=== PATIENT | female | born 1940 | race Caucasian/White ===

== ENCOUNTER 2017-02-23 09:55 | Emergency (ER) | payer MEDICARE, MEDICAID, SELFPAY | END 2017-02-23 11:23 | disposition home or self-care (01) | PROVIDERS: Emergency Provider Nurse Practitioner; Family Provider Family Medicine; Visit Provider Nurse Practitioner | DX: J06.9 Acute upper respiratory infection, unspecified (principal); Z79.899 Other long term (current) drug therapy; E11.9 Type 2 diabetes mellitus without complications; Z79.84 Long term (current) use of oral hypoglycemic drugs; K21.9 Gastro-esophageal reflux disease without esophagitis; E78.5 Hyperlipidemia, unspecified | CPT/HCPCS: G0463; 87804; 99201 ==

== ENCOUNTER → 2017-03-02 13:37 | Outpatient (POV) | payer MEDICARE, MEDICAID, SELFPAY ==
[2017-03-02 14:16] VITALS: BP 116/71; PULSE 86; RESP 18; O2SAT 96
--- NOTE | 2017-03-02 14:24 | P.CONS_ITS ---
[facility] Pain Management SOAP Note Subjective:: This patient is a pleasant 76-year-old white female who we are treating for low back pain with lumbar radiculopathy symptoms. She had a lumbar epidural steroid injection which gave her some relief however it did not give her as much relief as her second injection. She still has some low back pain. She is also on [place] 5 mg twice a day which is helping tremendously. Her urine drug screen and Y[place] are appropriate. Kaspar #[id number]. We will give her 1 prescription of [place] 5 mg twice a day. I will give her a one-month prescription. We will follow-up with her in 1 month to reevaluate her symptoms and possible plan on a repeat injection at that time. Objective:: Alert and oriented ?3 no acute distress. Patient has a normal gait. Motor strength of the lower extremities is 5/5. There is no gross sensory deficit. Assessment:: Degenerative disc disease of lumbar spine with lumbar radiculopathy symptoms. Plan:: We will give her 1 prescription of [place] 5 mg twice a day. I will give her a one-month prescription. We will follow-up with her in 1 month to reevaluate her symptoms and possible plan on a repeat injection at that time.
[2017-03-02 16:01] LABS: Amphetamine/Metha Screen,Urine Negative ng/mL (<1000); Barbiturates Screen,Urine Negative ng/mL (<200); Benzodiazepines Screen,Urine Negative ng/mL (200); Cannabinoid Screen,Urine Negative ng/mL (<50); Cocaine Screen,Urine Negative ng/g (<300); Methadone Screen,Urine Negative ng/mL (<300); Opiate Screen,Urine Positive ng/mL (<300); Phencyclidine Screen,Urine Negative ng/mL (<25)
[2017-03-10 09:16] LABS: Codeine Negative (Cutoff=100); Hydrocodone Positive (.); Hydromorphone Negative (Cutoff=100); Morphine Negative (Cutoff=100)
[2017-03-12 17:09] LABS: Opiates Positive (.)
== END ==
PROVIDERS: PCP Family Medicine; Visit Provider Anesthesiology
DX: M51.16 Intervertebral disc disorders with radiculopathy, lumbar region (principal); Z79.899 Other long term (current) drug therapy
CPT/HCPCS: 80305; 80361; 99212; G0480

== ENCOUNTER → 2017-03-23 12:33 | Outpatient (CLI) | payer MEDICARE, MEDICAID, SELFPAY ==
--- NOTE | 2017-03-23 12:36 | XR_ITS ---
XR chest 2V HISTORY: Chest pain ITS.REASON: angina class III ORDERING PHYSICIAN: Joon Arenas MD PATIENT AGE: 76 years COMPARISON: 05/16/2012 FINDINGS: There has been a prior median sternotomy with CABG. There is cardiomegaly without failure. There is a vague opacity in the right perihilar region measuring approximately 3 cm. May be due to an area of infiltrate. Follow-up is recommended subtle mass lesion cannot be excluded. In addition, there is a 7 mm nodular opacity in the right lung base nonspecific but not previously identified. There is chronic interstitial changes within the lungs. There has been prior left shoulder replacement. Multilevel degenerative changes are present in the thoracic spine. IMPRESSION: 1. Cardiomegaly, prior CABG. 2. Patchy infiltrate/pneumonia right midlung with a nonspecific nodular opacity in the right lung base. Follow-up recommended to confirm stability and/or resolution. 3. Chronic interstitial changes.
[2017-03-23 12:56] LABS: Basophils % 0.4 % (0.1-2.0); Eosinophils # 0.2 K/mm3 (0.0-0.4); Eosinophils % 3.2 % (0.1-12.0); Hematocrit 34.5 % (37.0-47.0); Lymphocytes # 2.6 K/mm3 (0.7-4.5); Mean Corpuscular Hemoglobin 28.6 pg (27.0-31.2); Mean Corpuscular Volume 89.3 fl (81-99); Mean Platelet Volume 8.3 fl (7.4-10.4); Monocytes # 0.5 K/mm3 (0.1-1.0); Monocytes % 6.8 % (1.7-9.3); Neutrophils # 4.1 K/mm3 (1.8-7.8); Neutrophils % 54.6 % (37.0-80.0); Platelet Count 382 K/mm3 (142-424); Red Blood Count 3.86 M/mm3 (4.20-5.40); Red Cell Distribution Width 14.5 % (11.5-17.5); White Blood Count 7.5 K/mm3 (4.8-10.8)
[2017-03-23 13:57] LABS: Anion Gap 8.8 mEq/L (5-15); Blood Urea Nitrogen 23 mg/dL (7-18); Carbon Dioxide 31 mmol/L (21.0-32.0); Chloride 105 mmol/L (98-107); Creatinine,Serum 0.66 mg/dL (0.55-1.02); Estimated Glomerular Filt Rate 87 ml/min (>60); Free T4 (Free Thyroxine) 0.98 ng/dl (0.76-1.46); GFR (African American) 105 ML/MIN (>60); Glucose 66 mg/dL (74-106); Potassium 4.8 mmoL/L (3.5-5.1); Sodium 140 mmol/L (136-145); Thyroid Stimulating Hormone 2.77 uIU/ml (0.358-3.740)
== END ==
PROVIDERS: Family Provider Family Medicine; PCP Family Medicine; Visit Provider Internal Medicine
DX: E78.5 Hyperlipidemia, unspecified; I10 Essential (primary) hypertension; I25.10 Atherosclerotic heart disease of native coronary artery without angina pectoris; I20.9 Angina pectoris, unspecified; R06.00 Dyspnea, unspecified
CPT/HCPCS: 36415; 71046; 80048; 84439; 84443; 85025

== ENCOUNTER → 2017-03-26 09:00 | Outpatient (CLI) | payer MEDICARE, MEDICAID, SELFPAY ==
--- NOTE | 2017-03-26 09:04 | CA_ITS ---
PROCEDURE: 2-D M-mode and color Doppler study INDICATIONS FOR THE TEST: Chest pain COPD+ Heart Murmur Tobacco Smoking Palpitations Fatigue+ Syncope Edema Hypertension+Diabetes Mellitus+ Rheumatic Fever SOB CELESTE+Obesity Hyperlipidemia+ Family History HD Additional History CABG/CAD, CHEST PRESSURE PATIENT INFORMATION HEIGHT: 62 WEIGHT: 188 GENDER: Female B/P: 145/73 2-D/M-MODE INTERPRETATION: 2-D MEASUREMENTS OBSERVED VALUES IN CMS Right Ventricular Dimension (RVDd) 2.2 Interventricular Septum (Thickness)(IVsd) 1.3 Left Ventricular Internal Dimensions(LVIDd) 4.2 Left Ventricular Posterior Wall (Thickness)(LVPWd) 1.3 Aortic Root 2.9 Aortic Cusp Separation 2.0 Left Atrial Dimensions (LAD) 4.4 2D 1. Technically difficult study because of the patient's factor and poor acoustic windows. 2. Left atrium is mildly enlarged, left ventricle is normal size, there is mild concentric left ventricular hypertrophy, visually estimated ejection fraction 55% with no obvious regional wall motion abnormality. 3. The right atrium and right ventricle are mildly enlarged with normal contractility. 4. The aortic valve is minimally thickened and fibrosed. Leaflet continue to display mobility. 5. The mitral and tricuspid valve leaflets are minimally thickened. 6. No significant pericardial effusion noted. 7. The pulmonic valve is poorly visualized. DOPPLER INTERROGATION: Doppler interrogation of the aortic, mitral and tricuspid valvular presence of mild mitral and tricuspid regurgitation, tricuspid and jet velocity is insufficient for calculation of the right ventricular systolic pressure, aortic outflow velocities mildly increased does not represent significant aortic stenosis, there is no aortic insufficiency. Grade 1 diastolic dysfunction seen without tissue Doppler evidence of raised left atrial pressure. CONCLUSION: 1. Mildly enlarged left atrium, normal left ventricular size, mild concentric left ventricular hypertrophy, visually estimated ejection fraction 55% with no obvious regional wall motion abnormality, grade 1 diastolic dysfunction seen without tissue Doppler evidence of raised left atrial pressure. 2. Thickened and calcified aortic valve, Doppler is not suggestive of significant aortic stenosis, there is no aortic insufficiency. 3. Mild mitral and tricuspid regurgitation 4. No significant pericardial effusion noted.
== END ==
PROVIDERS: Family Provider Family Medicine; PCP Family Medicine; Visit Provider Internal Medicine
DX: I25.10 Atherosclerotic heart disease of native coronary artery without angina pectoris (principal); I20.9 Angina pectoris, unspecified; E11.9 Type 2 diabetes mellitus without complications; E78.5 Hyperlipidemia, unspecified; I10 Essential (primary) hypertension; Z95.1 Presence of aortocoronary bypass graft
CPT/HCPCS: 93306

== ENCOUNTER → 2017-04-12 13:42 | Outpatient (POV) | payer MEDICARE, MEDICAID, SELFPAY ==
[2017-04-12 13:51] VITALS: BP 128/71; PULSE 68; RESP 18; O2SAT 95; BMI 32.5
--- NOTE | 2017-04-12 13:57 | HMH.PAINSOAP ---
[facility] Pain Management SOAP Note Subjective:: Patient is a pleasant 76-year-old white female who are treating for low back pain secondary to degenerative disc disease of the lumbar spine and lumbar radiculopathy. Patient has had lumbar injections in the past with significant relief. However after her last injection she did not get as much relief as her first injection. Patient rates her pain at 8 out of 10 when she is up and around. She states that it is more like a 5 out of 10 when she sitting down. She has bilateral leg radiculopathy. She states that it is a constant aching pain. It is relieved by sitting down. She is wishing to try another lumbar epidural steroid injection. Patient has started [place] 5 mg 1 p.o. twice daily patient states that it helps decrease the pain by 75%. She feels that this in conjunction with another lumbar epidural steroid injection might give her some long-term relief. Patient has tried and failed anti-inflammatories and physical therapy. Patient's Kaspar #[id number] reviewed and appropriate. Her urine drug screen has been appropriate in the past. Patient wishes to schedule another lumbar injection today. Objective:: Physical Exam General: Alert and oriented x3, no acute distress, pleasant and cooperative, [on room air] Lungs: Resps E/U, Symmetrical chest expansion Musculoskeletal: Flexion and extension of lumbar spine somewhat guarded secondary to pain, deep tendon reflexes normal, strength in upper and lower extremities [5/5], slightly antalgic gait noted Neurological: speech clear, power generating plant operator equal, no gross sensory deficits Assessment:: degenerative disc disease of lumbar spine with lumbar radiculopathy symptoms Plan:: We will refill the patient's [place] 5 mg 1 p.o. twice daily today and give her one prescription. Dr. Enriquez is reviewed this and feels that it is appropriate. Carrie has been reviewed and appropriate Kaspar #[id number]. We will also schedule her lumbar epidural steroid injection at L4-L5 today. Given the efficacy of this injection previously and the increased pain relief with the medication I feel like this injection will be beneficial for the patient. Patient has been prescribed a controlled substance after being counseled on the medication, medication safety, and possible side effects. CARRIE report has been obtained and reviewed prior to prescription and found to be appropriate. Opioid contract was reviewed and signed by the patient, and that they have agreed to all of the terms set forth by our compliance program. This note was dictated using voice recognition software and may include errors and omissions.
--- NOTE | 2017-04-12 14:17 | XR_ITS ---
XR chest 2V HISTORY: Chest pain, follow-up pneumonia ITS.REASON: chest pain ORDERING PHYSICIAN: Suad Ramirez PATIENT AGE: 76 years COMPARISON: 03/23/2017 FINDINGS: Prior median CABG. Mild cardiomegaly. Pulmonary vessels are slightly prominent suggesting mild CHF. Previously noted infiltrate in the right perihilar region has improved. There is minimal prominence of the interstitium which may be related to mild interstitial edema. There are degenerative changes in the thoracic spine. Prior left shoulder replacement. IMPRESSION: Mild CHF. Improved right perihilar infiltrate
--- NOTE | 2017-04-12 14:35 | P.CONS_ITS ---
[facility] Pain Management SOAP Note Subjective:: Patient is a pleasant 76-year-old white female who are treating for low back pain secondary to degenerative disc disease of the lumbar spine and lumbar radiculopathy. Patient has had lumbar injections in the past with significant relief. However after her last injection she did not get as much relief as her first injection. Patient rates her pain at 8 out of 10 when she is up and around. She states that it is more like a 5 out of 10 when she sitting down. She has bilateral leg radiculopathy. She states that it is a constant aching pain. It is relieved by sitting down. She is wishing to try another lumbar epidural steroid injection. Patient has started [place] 5 mg 1 p.o. twice daily patient states that it helps decrease the pain by 75%. She feels that this in conjunction with another lumbar epidural steroid injection might give her some long-term relief. Patient has tried and failed anti-inflammatories and physical therapy. Patient's Kaspar #[id number] reviewed and appropriate. Her urine drug screen has been appropriate in the past. Patient wishes to schedule another lumbar injection today. Objective:: Physical Exam General: Alert and oriented x3, no acute distress, pleasant and cooperative, [ on room air] Lungs: Resps E/U, Symmetrical chest expansion Musculoskeletal: Flexion and extension of lumbar spine somewhat guarded secondary to pain, deep tendon reflexes normal, strength in upper and lower extremities [5/5], slightly antalgic gait noted Neurological: speech clear, manager program equal, no gross sensory deficits Assessment:: degenerative disc disease of lumbar spine with lumbar radiculopathy symptoms Plan:: We will refill the patient's [place] 5 mg 1 p.o. twice daily today and give her one prescription. Dr. Enriquez is reviewed this and feels that it is appropriate. Carrie has been reviewed and appropriate Kaspar #[id number]. We will also schedule her lumbar epidural steroid injection at L4-L5 today. Given the efficacy of this injection previously and the increased pain relief with the medication I feel like this injection will be beneficial for the patient. Patient has been prescribed a controlled substance after being counseled on the medication, medication safety, and possible side effects. CARRIE report has been obtained and reviewed prior to prescription and found to be appropriate. Opioid contract was reviewed and signed by the patient, and that they have agreed to all of the terms set forth by our compliance program. This note was dictated using voice recognition software and may include errors and omissions.
== END ==
PROVIDERS: Family Provider Family Medicine; PCP Family Medicine; Referring Provider Internal Medicine; Visit Provider Clinical Nurse Specialist Family Health
DX: Z95.1 Presence of aortocoronary bypass graft (principal); I25.10 Atherosclerotic heart disease of native coronary artery without angina pectoris; I10 Essential (primary) hypertension; E78.4 Other hyperlipidemia; E11.9 Type 2 diabetes mellitus without complications
CPT/HCPCS: 99212; 71046

== ENCOUNTER 2017-05-07 12:25 | Day surgery (SDC) | payer MEDICARE, MEDICAID, SELFPAY ==
[2017-05-07 13:02] VITALS: BP 110/56; PULSE 73; TEMP 36.1; O2SAT 95; BMI 33.6
[2017-05-07 13:17] VITALS: BP 138/70; PULSE 74; RESP 18
[2017-05-07 13:24] VITALS: BP 139/90; PULSE 76; RESP 18
--- NOTE | 2017-05-07 13:27 | P.PCN_ITS ---
- Procedure Date: 05/07/17 Time: 13:25 Anesthesiologist:: Eugene Marte MD Complications:: None Pre-procedure Diagnosis:: Degenerative disc disease of lumbar spine with lumbar radiculopathy symptoms Post-procedure Diagnosis:: Same Indications for Procedure:: This patient is a pleasant 76-year-old white female who we are treating for low back pain with lumbar radiculopathy symptoms. Most of her pain is in her low back radiating down her right leg. She did get benefit from her previous lumbar epidural steroid injection. She is also increased her gabapentin. This has helped with some of her radicular symptoms. We will do a lumbar epidural steroid injection today to see if this further helps with her pain symptoms. Procedure Details:: Lumbar epidural steroid injection under fluoroscopy Informed consent was obtained and the risk and benefits of the procedure was explained to the patient. The patient was taken to the procedure room. The patient was placed prone on the procedure table. The patient was prepped and draped in sterile fashion. C-arm fluoroscopy was used to view the lumbar spine. Skin and subcutaneous tissues were anesthetized using lidocaine. I placed an 18-gauge epidural needle and advanced into the L4-L5 interspace using fluoroscopic guidance and [id number] to air. After confirmation of needle placement in the epidural space with dye I injected 2 mL of lidocaine 1.5 % with Depo-Medrol 80 mg. Patient tolerated the procedure well with no complications. Plan and Disposition:: We will follow-up with her in 2 weeks. We will reevaluate her symptoms at that time. She is to continue with her gabapentin.
[2017-05-07 14:02] VITALS: BP 106/44; PULSE 77; RESP 16; TEMP 36.1; O2SAT 96
== END 2017-05-07 13:05 | disposition home or self-care (01) ==
LOC: SC.PAINP 12:26
PROVIDERS: Family Provider Family Medicine; PCP Family Medicine; Visit Provider Anesthesiology
DX: M51.16 Intervertebral disc disorders with radiculopathy, lumbar region (principal)
CPT/HCPCS: 62323; J1040; Q9966

== ENCOUNTER → 2017-05-24 13:31 | Outpatient (POV) | payer MEDICARE, MEDICAID, SELFPAY ==
[2017-05-24 13:44] VITALS: BP 158/59; PULSE 79; RESP 18; TEMP 36.7; O2SAT 94; BMI 32.9
--- NOTE | 2017-05-24 13:59 | HMH.PAINSOAP ---
[facility] Pain Management SOAP Note Subjective:: She is a pleasant 77-year-old white female who presents today for follow-up after lumbar epidural steroid injection. Patient is doing very well stating that she has about 80% relief of her symptoms. Patient has done well with lumbar epidural steroid injections in the past. Patient has just recently lost her granddaughter. Patient seems to be handling this well. Patient is interested in injective therapy moving forward. Patient also currently being medically managed with [place] 5 mg 1 p.o. twice daily. Patient is doing well with this. Patient denies any side effects. Patient states that helps her pain 60-70%. Patient's CARRIE #[id number] reviewed and appropriate. Patient's UDS has been appropriate in the past. Patient is due refills today. ROS General: no recent weight change, no fever, no sleep disturbances Respiratory: no cough, no shortness of air, no recurring pulmonary infections Cardiovascular/Peripheral Vascular: No chest pain, No palpitations, no edema, no shortness of breath. Gastrointestinal: no incontinence, normal bowel movements reported Genitourinary: no incontinence Musculoskeletal: Back pain, bilateral leg pain Psychiatric: normal mood/ affect, [denies depression], [denies anxiety] Neurological: [denies weakness in extremities], [denies balance issues] Objective:: Physical Exam General: Alert and oriented x3, no acute distress, pleasant and cooperative, [on room air] Lungs: Resps E/U, Symmetrical chest expansion, Eyes: PERRL Musculoskeletal: Flexion and extension of lumbar spine somewhat guarded secondary to pain, deep tendon reflexes normal, strength in upper and lower extremities [5/5], slightly antalgic gait noted Neurological: speech clear, pharmacy delivery driver equal, no gross sensory deficits Assessment:: Degenerative disc disease of the lumbar spine, lumbar radiculopathy Plan:: We will plan another lumbar epidural steroid injection in several for her. We will also refill her [place] 5 mg 1 p.o. twice daily and give HER-2 prescriptions. Patient's Carrie and UDS reviewed and appropriate. Dr. Marte has reviewed her chart and agrees with this plan of care. We will follow-up with the patient in 3 months and regards to her prescriptions. 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 Patient has been prescribed a controlled substance after being counseled on the medication, medication safety, and possible side effects. CARRIE report has been obtained and reviewed prior to prescription and found to be appropriate. Opioid contract was reviewed and signed by the patient, and that they have agreed to all of the terms set forth by our compliance program. This note was dictated using voice recognition software and may contain errors or omissions
--- NOTE | 2017-05-24 14:02 | P.CONS_ITS ---
[facility] Pain Management SOAP Note Subjective:: She is a pleasant 77-year-old white female who presents today for follow-up after lumbar epidural steroid injection. Patient is doing very well stating that she has about 80% relief of her symptoms. Patient has done well with lumbar epidural steroid injections in the past. Patient has just recently lost her granddaughter. Patient seems to be handling this well. Patient is interested in injective therapy moving forward. Patient also currently being medically managed with [place] 5 mg 1 p.o. twice daily. Patient is doing well with this. Patient denies any side effects. Patient states that helps her pain 60-70%. Patient's CARRIE #[id number] reviewed and appropriate. Patient's UDS has been appropriate in the past. Patient is due refills today. ROS General: no recent weight change, no fever, no sleep disturbances Respiratory: no cough, no shortness of air, no recurring pulmonary infections Cardiovascular/Peripheral Vascular: No chest pain, No palpitations, no edema, no shortness of breath. Gastrointestinal: no incontinence, normal bowel movements reported Genitourinary: no incontinence Musculoskeletal: Back pain, bilateral leg pain Psychiatric: normal mood/ affect, [denies depression], [denies anxiety] Neurological: [denies weakness in extremities], [denies balance issues] Objective:: Physical Exam General: Alert and oriented x3, no acute distress, pleasant and cooperative, [ on room air] Lungs: Resps E/U, Symmetrical chest expansion, Eyes: PERRL Musculoskeletal: Flexion and extension of lumbar spine somewhat guarded secondary to pain, deep tendon reflexes normal, strength in upper and lower extremities [5/5], slightly antalgic gait noted Neurological: speech clear, bilingual student tutor equal, no gross sensory deficits Assessment:: Degenerative disc disease of the lumbar spine, lumbar radiculopathy Plan:: We will plan another lumbar epidural steroid injection in several for her. We will also refill her [place] 5 mg 1 p.o. twice daily and give HER-2 prescriptions. Patient's Carrie and UDS reviewed and appropriate. Dr. Marte has reviewed her chart and agrees with this plan of care. We will follow-up with the patient in 3 months and regards to her prescriptions. 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 Patient has been prescribed a controlled substance after being counseled on the medication, medication safety, and possible side effects. CARRIE report has been obtained and reviewed prior to prescription and found to be appropriate. Opioid contract was reviewed and signed by the patient, and that they have agreed to all of the terms set forth by our compliance program. This note was dictated using voice recognition software and may contain errors or omissions
== END ==
PROVIDERS: Family Provider Family Medicine; PCP Family Medicine; Visit Provider Clinical Nurse Specialist Family Health
DX: M54.16 Radiculopathy, lumbar region (principal)
CPT/HCPCS: 99212

== ENCOUNTER 2017-05-26 15:10 | Day surgery (SDC) | payer MEDICARE, MEDICAID, SELFPAY ==
[2017-05-26 16:02] VITALS: BP 100/59; PULSE 72; RESP 18; TEMP 36.6; O2SAT 94; BMI 32.9
--- NOTE | 2017-05-26 16:21 | P.PCN_ITS ---
- Procedure Date: 05/26/17 Time: 16:20 Anesthesiologist:: Eugene Marte MD Complications:: None Pre-procedure Diagnosis:: Degenerative disc disease of lumbar spine with lumbar radiculopathy symptoms Post-procedure Diagnosis:: Same Indications for Procedure:: This patient is a pleasant 77-year-old white female who we are treating for low back pain with lumbar radiculopathy symptoms. She did well with previous epidural injections. She was 80% better. Her pain is starting to return. We will do repeat lumbar epidural steroid injection under fluoroscopy today. Procedure Details:: Lumbar epidural steroid injection under fluoroscopy Informed consent was obtained and the risk and benefits of the procedure was explained to the patient. The patient was taken to the procedure room. The patient was placed prone on the procedure table. The patient was prepped and draped in sterile fashion. C-arm fluoroscopy was used to view the lumbar spine. Skin and subcutaneous tissues were anesthetized using lidocaine. I placed an 18-gauge epidural needle and advanced into the L4-L5 interspace using fluoroscopic guidance and [id number] to air. After confirmation of needle placement in the epidural space with dye I injected 2 mL of lidocaine 1.5 % with Depo-Medrol 80 mg. Patient tolerated the procedure well with no complications. Plan and Disposition:: We will follow-up with her in 2 weeks for reevaluate her symptoms at that time. She is to continue with her [place] 5 mg twice daily.
[2017-05-26 16:32] VITALS: BP 132/75; PULSE 66; RESP 18
[2017-05-26 16:35] VITALS: BP 135/77; PULSE 68; RESP 18
[2017-05-26 16:40] VITALS: BP 126/63; PULSE 74; RESP 18; O2SAT 93
== END 2017-05-26 16:37 | disposition home or self-care (01) ==
LOC: SC.PAINP 15:12
PROVIDERS: Family Provider Family Medicine; PCP Family Medicine; Visit Provider Anesthesiology
DX: M51.16 Intervertebral disc disorders with radiculopathy, lumbar region (principal)
CPT/HCPCS: 62323; J1040; Q9966

== ENCOUNTER → 2017-06-28 11:01 | Outpatient (POV) | payer MEDICARE, MEDICAID, SELFPAY ==
--- NOTE | 2017-06-28 11:39 | HMH.PAINSOAP ---
[facility] Pain Management SOAP Note Subjective:: This patient pleasant 77-year-old white female who we are treating for low back pain with lumbar radiculopathy symptoms. She is done very well with previous lumbar epidural steroid injections. She had 80-90% relief. Her pain is now starting to come back. She has been more active and she believes she is twisted her back. Pain is in the same distribution as previous. Pain score is an 8 out of 10. Most of her pain is in the low back today. Objective:: Alert and oriented ?3 no acute distress. Patient does have an antalgic gait. Motor strength of the lower extremities is 5/5. There is no gross sensory deficit. Assessment:: Degenerative disc disease of lumbar spine with lumbar radiculopathy symptoms. Plan:: We will seek approval for repeat lumbar epidural steroid injection at L4-L5.
== END ==
PROVIDERS: Family Provider Family Medicine; PCP Family Medicine; Visit Provider Anesthesiology
DX: M54.16 Radiculopathy, lumbar region (principal)
CPT/HCPCS: 99212

== ENCOUNTER → 2017-07-27 10:01 | Outpatient (POV) | payer MEDICARE, MEDICAID, SELFPAY ==
[2017-07-27 10:17] VITALS: BP 114/67; PULSE 76; RESP 18; O2SAT 98; BMI 35.1
--- NOTE | 2017-07-27 10:52 | HMH.PAINSOAP ---
[facility] Pain Management SOAP Note Subjective:: Patient is a pleasant 77-year-old white female who we are treating for low back pain with lumbar radiculopathy symptoms. Patient is currently being managed through epidural injections along with [place] 5 mg 1 p.o. twice daily. Patient states that the medication helps 60-70%. Patient's CARRIE #[id number] reviewed and appropriate. Patient does get gabapentin from her primary care physician. Patient denies any side effects to the medication. Patient has had a recent third lumbar epidural steroid injection reports 80% relief. ROS General: no recent weight change, no fever, no sleep disturbances Respiratory: no cough, no shortness of air, no recurring pulmonary infections Cardiovascular/Peripheral Vascular: No chest pain, No palpitations, no edema, no shortness of breath. Gastrointestinal: no incontinence, normal bowel movements reported Genitourinary: no incontinence Musculoskeletal: Back pain Psychiatric: normal mood/ affect Neurological: [denies weakness in extremities], [denies balance issues] Objective:: Physical Exam General: Alert and oriented x3, no acute distress, pleasant and cooperative, [on room air] Lungs: Resps E/U, Symmetrical chest expansion, Eyes: PERRL Musculoskeletal: Flexion and extension of lumbar spine somewhat guarded secondary to pain, deep tendon reflexes normal, strength in upper and lower extremities [5/5], [abnormal gait noted] Neurological: speech clear, ammunition specialist equal, no gross sensory deficits Assessment:: Degenerative disc disease of lumbar spine with lumbar radiculopathy Plan:: We will free patient's [place] 5 mg 1 p.o. twice daily we will give HER-2 months worth of prescriptions. 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 Patient's Carrie and UDS have been appropriate. I will follow-up with this patient in [address] Marte has reviewed this chart and agrees with this plan of care. Patient has been prescribed a controlled substance after being counseled on the medication, medication safety, and possible side effects. CARRIE report has been obtained and reviewed prior to prescription and found to be appropriate. Opioid contract was reviewed and signed by the patient, and that they have agreed to all of the terms set forth by our compliance program. This note was dictated using voice recognition software and may contain errors or omissions
== END ==
PROVIDERS: Family Provider Family Medicine; PCP Family Medicine; Visit Provider Clinical Nurse Specialist Family Health
DX: M54.16 Radiculopathy, lumbar region (principal)
CPT/HCPCS: 99212

== ENCOUNTER → 2017-09-30 11:14 | Outpatient (CLI) | payer MEDICARE, MEDICAID, SELFPAY ==
[2017-09-30 13:27] LABS: Amphetamine/Metha Screen,Urine Negative ng/mL (<1000); Barbiturates Screen,Urine Negative ng/mL (<200); Benzodiazepines Screen,Urine Negative ng/mL (<200); Cannabinoid Screen,Urine Negative ng/mL (<50); Cocaine Screen,Urine Negative ng/mL (<300); Methadone Screen,Urine Negative ng/mL (<300); Opiate Screen,Urine Positive ng/mL (<300); Phencyclidine Screen,Urine Negative ng/mL (<25)
[2017-10-13 12:20] LABS: Codeine Negative (Cutoff=100); Hydrocodone Positive (.); Hydromorphone Positive (.); Morphine Negative (Cutoff=100)
[2017-10-13 15:03] LABS: Opiates Positive (.)
== END ==
PROVIDERS: Visit Provider Clinical Nurse Specialist Family Health
DX: Z79.899 Other long term (current) drug therapy (principal)
CPT/HCPCS: 80305; 80361; 80365; G0480

== ENCOUNTER → 2017-10-25 09:42 | Outpatient (POV) | payer MEDICARE, MEDICAID, SELFPAY ==
[2017-10-25 09:47] VITALS: BP 110/55; PULSE 81; RESP 18; O2SAT 95; BMI 32.9
--- NOTE | 2017-10-25 10:00 | HMH.PAINSOAP ---
[facility] Pain Management SOAP Note Subjective:: Patient is a pleasant 77-year-old male who presents today for follow-up and medication refills. Patient is currently being treated for low back pain with epidural injections along with [place] 5 mg 1 p.o. twice daily. Patient states that her pain has significantly increased in the last couple months. I discussed with her that she is welcome to call our office in between visits if she needs to come in sooner. Patient's CARRIE #[id number] reviewed and appropriate. Patient is also on Mobic however she states that it is not helping at this time. We will switch her to Celebrex. Patient denies any allergies or kidney issues. She rates her pain a 7 out of 10 today mostly in her low back and her legs. Patient has not done well with injections in the past. Patient is continuing a home stretching program. Patient's CARRIE and drug screen have been appropriate. ROS General: no recent weight change, no fever, no sleep disturbances Respiratory: no cough, no shortness of air, no recurring pulmonary infections Cardiovascular/Peripheral Vascular: No chest pain, No palpitations, no edema, no shortness of breath. Gastrointestinal: no incontinence, normal bowel movements reported Genitourinary: no incontinence Musculoskeletal: Back pain, leg pain Psychiatric: normal mood/ affect Neurological: [denies weakness in extremities], [denies balance issues] Objective:: Physical Exam General: Alert and oriented x3, no acute distress, pleasant and cooperative, [on room air] Lungs: Resps E/U, Symmetrical chest expansion, Eyes: PERRL Musculoskeletal: Flexion and extension of lumbar spine somewhat guarded secondary to pain, deep tendon reflexes normal, strength in upper and lower extremities [5/5], [abnormal gait noted] straight leg raise test bilaterally at 30? Neurological: speech clear, calender let off helper equal, no gross sensory deficits Assessment:: Degenerative disc disease lumbar spine with lumbar radiculopathy symptoms Plan:: We will call the patient in Celebrex 100 mg 1 p.o. twice daily. Patient can start by taking 1 pill a day and see how it affects her. Patient is going to quit taking her Mobic. We will also refill her [place] 5 mg 1 p.o. twice daily. We will give HER-2 months worth of prescriptions. Patient denies side effects of this medication. I will follow-up with the patient after her injection. We will schedule her for an L4-L5 lumbar epidural steroid injection. Dr. Marte is reviewed this chart and agrees with this plan of care.. Patient has been prescribed a controlled substance after being counseled on the medication, medication safety, and possible side effects. CARRIE report has been obtained and reviewed prior to prescription and found to be appropriate. Opioid contract was reviewed and signed by the patient, and that they have agreed to all of the terms set forth by our compliance program. This note was dictated using voice recognition software and may contain errors or omissions
--- NOTE | 2017-10-25 10:03 | P.CONS_ITS ---
[facility] Pain Management SOAP Note Subjective:: Patient is a pleasant 77-year-old male who presents today for follow-up and medication refills. Patient is currently being treated for low back pain with epidural injections along with [place] 5 mg 1 p.o. twice daily. Patient states that her pain has significantly increased in the last couple months. I discussed with her that she is welcome to call our office in between visits if she needs to come in sooner. Patient's CARRIE #[id number] reviewed and appropriate. Patient is also on Mobic however she states that it is not helping at this time. We will switch her to Celebrex. Patient denies any allergies or kidney issues. She rates her pain a 7 out of 10 today mostly in her low back and her legs. Patient has not done well with injections in the past. Patient is continuing a home stretching program. Patient's CARRIE and drug screen have been appropriate. ROS General: no recent weight change, no fever, no sleep disturbances Respiratory: no cough, no shortness of air, no recurring pulmonary infections Cardiovascular/Peripheral Vascular: No chest pain, No palpitations, no edema, no shortness of breath. Gastrointestinal: no incontinence, normal bowel movements reported Genitourinary: no incontinence Musculoskeletal: Back pain, leg pain Psychiatric: normal mood/ affect Neurological: [denies weakness in extremities], [denies balance issues] Objective:: Physical Exam General: Alert and oriented x3, no acute distress, pleasant and cooperative, [on room air] Lungs: Resps E/U, Symmetrical chest expansion, Eyes: PERRL Musculoskeletal: Flexion and extension of lumbar spine somewhat guarded secondary to pain, deep tendon reflexes normal, strength in upper and lower extremities [5/5], [abnormal gait noted] straight leg raise test bilaterally at 30? Neurological: speech clear, leadership development instructor equal, no gross sensory deficits Assessment:: Degenerative disc disease lumbar spine with lumbar radiculopathy symptoms Plan:: We will call the patient in Celebrex 100 mg 1 p.o. twice daily. Patient can start by taking 1 pill a day and see how it affects her. Patient is going to quit taking her Mobic. We will also refill her [place] 5 mg 1 p.o. twice daily. We will give HER-2 months worth of prescriptions. Patient denies side effects of this medication. I will follow-up with the patient after her injection. We will schedule her for an L4-L5 lumbar epidural steroid injection. Dr. Marte is reviewed this chart and agrees with this plan of care.. Patient has been prescribed a controlled substance after being counseled on the medication, medication safety, and possible side effects. CARRIE report has been obtained and reviewed prior to prescription and found to be appropriate. Opioid contract was reviewed and signed by the patient, and that they have agreed to all of the terms set forth by our compliance program. This note was dictated using voice recognition software and may contain errors or omissions
== END ==
PROVIDERS: Family Provider Family Medicine; PCP Family Medicine; Visit Provider Clinical Nurse Specialist Family Health
DX: M51.16 Intervertebral disc disorders with radiculopathy, lumbar region (principal)
CPT/HCPCS: 99212

== ENCOUNTER → 2017-11-09 11:03 | Outpatient (CLI) | payer MEDICARE, MEDICAID, SELFPAY ==
[2017-11-09 12:24] LABS: Erythrocyte Sedimentation Rate 14 mm/hr (0-30)
[2017-11-10 12:46] LABS: Vitamin D 25 Hydroxy 58.6 ng/mL (30.0-100.0)
== END ==
PROVIDERS: PCP Family Medicine; Visit Provider Family Medicine
DX: M62.81 Muscle weakness (generalized) (principal); E55.9 Vitamin D deficiency, unspecified
CPT/HCPCS: 36415; 82652; 85651

== ENCOUNTER → 2017-11-29 11:18 | Outpatient (POV) | payer MEDICARE, MEDICAID, SELFPAY ==
[2017-11-29 12:28] VITALS: BP 106/67; PULSE 74; RESP 18; O2SAT 97; BMI 33.6
[2017-11-29 12:31] LABS: Amphetamine/Metha Screen,Urine Negative ng/mL (<1000); Barbiturates Screen,Urine Negative ng/mL (<200); Benzodiazepines Screen,Urine Negative ng/mL (<200); Cannabinoid Screen,Urine Negative ng/mL (<50); Cocaine Screen,Urine Negative ng/mL (<300); Methadone Screen,Urine Negative ng/mL (<300); Opiate Screen,Urine Positive ng/mL (<300); Phencyclidine Screen,Urine Negative ng/mL (<25)
--- NOTE | 2017-11-29 12:54 | HMH.PAINSOAP ---
[facility] Pain Management SOAP Note Subjective:: Patient is a pleasant 77-year-old white female who presents today for follow-up after lumbar epidural steroid injection. Patient's has helped her pain significantly she rates her pain a 3 out of 10 today. Patient is also on [place] 5 mg 1 p.o. twice daily. Patient denies side effects to this medication. Patient's CARRIE #[id number] reviewed and appropriate. UDS has been appropriate. She denies side effects or medication. ROS General: no recent weight change, no fever, no sleep disturbances Respiratory: no cough, no shortness of air, no recurring pulmonary infections Cardiovascular/Peripheral Vascular: No chest pain, No palpitations, no edema, no shortness of breath. Gastrointestinal: no incontinence, normal bowel movements reported Genitourinary: no incontinence Musculoskeletal: Back pain, leg pain Psychiatric: normal mood/ affect Neurological: [denies weakness in extremities], [denies balance issues] Objective:: Physical Exam General: Alert and oriented x3, no acute distress, pleasant and cooperative, [on room air] Lungs: Resps E/U, Symmetrical chest expansion, Eyes: PERRL Musculoskeletal: Flexion and extension of lumbar spine somewhat guarded secondary to pain, deep tendon reflexes normal, strength in upper and lower extremities [5/5], [abnormal gait noted] Neurological: speech clear, test engineering manager equal, no gross sensory deficits Assessment:: Degenerative disc disease lumbar spine with lumbar radiculopathy symptoms Plan:: We will refill the patient's [place] 5 mg 1 p.o. twice daily and give her 2 months worth of prescriptions. We will also schedule a lumbar epidural steroid injection at L4-L5 for her in January. Dr. Marte has reviewed this chart and agrees with this plan of care. I will follow-up with the patient after her injection. Patient has been prescribed a controlled substance after being counseled on the medication, medication safety, and possible side effects. CARRIE report has been obtained and reviewed prior to prescription and found to be appropriate. Opioid contract was reviewed and signed by the patient, and that they have agreed to all of the terms set forth by our compliance program. This note was dictated using voice recognition software and may contain errors or omissions
--- NOTE | 2017-11-29 12:57 | P.CONS_ITS ---
[facility] Pain Management SOAP Note Subjective:: Patient is a pleasant 77-year-old white female who presents today for follow-up after lumbar epidural steroid injection. Patient's has helped her pain significantly she rates her pain a 3 out of 10 today. Patient is also on [place] 5 mg 1 p.o. twice daily. Patient denies side effects to this medication. Patient's CARRIE #[id number] reviewed and appropriate. UDS has been appropriate. She denies side effects or medication. ROS General: no recent weight change, no fever, no sleep disturbances Respiratory: no cough, no shortness of air, no recurring pulmonary infections Cardiovascular/Peripheral Vascular: No chest pain, No palpitations, no edema, no shortness of breath. Gastrointestinal: no incontinence, normal bowel movements reported Genitourinary: no incontinence Musculoskeletal: Back pain, leg pain Psychiatric: normal mood/ affect Neurological: [denies weakness in extremities], [denies balance issues] Objective:: Physical Exam General: Alert and oriented x3, no acute distress, pleasant and cooperative, [on room air] Lungs: Resps E/U, Symmetrical chest expansion, Eyes: PERRL Musculoskeletal: Flexion and extension of lumbar spine somewhat guarded secondary to pain, deep tendon reflexes normal, strength in upper and lower extremities [5/5], [abnormal gait noted] Neurological: speech clear, change booth attendant equal, no gross sensory deficits Assessment:: Degenerative disc disease lumbar spine with lumbar radiculopathy symptoms Plan:: We will refill the patient's [place] 5 mg 1 p.o. twice daily and give her 2 months worth of prescriptions. We will also schedule a lumbar epidural steroid inje ction at L4-L5 for her in January. Dr. Marte has reviewed this chart and agrees with this plan of care. I will follow-up with the patient after her injection. Patient has been prescribed a controlled substance after being counseled on the medication, medication safety, and possible side effects. CARRIE report has been obtained and reviewed prior to prescription and found to be appropriate. Opioid contract was reviewed and signed by the patient, and that they have agreed to all of the terms set forth by our compliance program. This note was dictated using voice recognition software and may contain errors or omissions
[2017-12-05 19:07] LABS: Codeine Negative (Cutoff=100); Hydrocodone Positive (.); Hydromorphone Positive (.); Morphine Negative (Cutoff=100)
[2017-12-06 04:05] LABS: Opiates Positive (.)
== END ==
PROVIDERS: Family Provider Family Medicine; PCP Family Medicine; Visit Provider Clinical Nurse Specialist Family Health
DX: M51.16 Intervertebral disc disorders with radiculopathy, lumbar region (principal); Z79.899 Other long term (current) drug therapy
CPT/HCPCS: 80305; 80361; 80365; 99213; G0480

== ENCOUNTER → 2018-03-07 11:50 | Outpatient (POV) | payer MEDICARE, MEDICAID, SELFPAY ==
[2018-03-07 12:06] VITALS: BP 113/59; PULSE 87; RESP 18; O2SAT 98; BMI 33.8
--- NOTE | 2018-03-07 12:12 | HMH.PAINSOAP ---
[facility] Pain Management SOAP Note Subjective:: Is a pleasant 77-year-old white female who presents today for follow-up after lumbar epidural steroid injection. She is doing well. She rates her pain a 3 out of 10. Patient would like to pursue another injection in April. Patient is on a blood thinner. We will get permission for her to come off of this prior to this. Patient is also on [place] 5 mg 1 p.o. twice daily. She states that that is beneficial. Patient denies side effects to this medication. She is not in need of refills at this time. Patient is continuing a home stretching program. She also is requesting a back brace today. I do believe it would be beneficial to help with her functionality. ROS General: no recent weight change, no fever, no sleep disturbances Respiratory: no cough, no shortness of air, no recurring pulmonary infections Cardiovascular/Peripheral Vascular: No chest pain, No palpitations, no edema, no shortness of breath. Gastrointestinal: no incontinence, normal bowel movements reported Genitourinary: no incontinence Musculoskeletal: Back pain Psychiatric: normal mood/ affect Neurological: [denies weakness in extremities], [denies balance issues] Objective:: Physical Exam General: Alert and oriented x3, no acute distress, pleasant and cooperative, [on room air] Lungs: Resps E/U, Symmetrical chest expansion, Eyes: PERRL Musculoskeletal: Flexion and extension of lumbar spine somewhat guarded secondary to pain, deep tendon reflexes normal, strength in upper and lower extremities [5/5], [abnormal gait noted] Neurological: speech clear, employment services director equal, no gross sensory deficits Assessment:: Degenerative disc disease lumbar spine with lumbar radiculopathy Plan:: We will schedule an L4-L5 lumbar epidural steroid injection for the patient at the beginning of April. I will follow-up with the patient after this. Patient knows that he needs to be off her blood thinner prior to this. We will discussed this with her primary care physician. This note was dictated using voice recognition software and may contain errors or omissions
--- NOTE | 2018-03-07 12:15 | P.CONS_ITS ---
[facility] Pain Management SOAP Note Subjective:: Is a pleasant 77-year-old white female who presents today for follow-up after lumbar epidural steroid injection. She is doing well. She rates her pain a 3 out of 10. Patient would like to pursue another injection in April. Patient is on a blood thinner. We will get permission for her to come off of this prior to this. Patient is also on [place] 5 mg 1 p.o. twice daily. She states that that is beneficial. Patient denies side effects to this medication. She is not in need of refills at this time. Patient is continuing a home stretching program. She also is requesting a back brace today. I do believe it would be beneficial to help with her functionality. ROS General: no recent weight change, no fever, no sleep disturbances Respiratory: no cough, no shortness of air, no recurring pulmonary infections Cardiovascular/Peripheral Vascular: No chest pain, No palpitations, no edema, no shortness of breath. Gastrointestinal: no incontinence, normal bowel movements reported Genitourinary: no incontinence Musculoskeletal: Back pain Psychiatric: normal mood/ affect Neurological: [denies weakness in extremities], [denies balance issues] Objective:: Physical Exam General: Alert and oriented x3, no acute distress, pleasant and cooperative, [on room air] Lungs: Resps E/U, Symmetrical chest expansion, Eyes: PERRL Musculoskeletal: Flexion and extension of lumbar spine somewhat guarded secondary to pain, deep tendon reflexes normal, strength in upper and lower extremities [5/5], [abnormal gait noted] Neurological: speech clear, plate keeper equal, no gross sensory deficits Assessment:: Degenerative disc disease lumbar spine with lumbar radiculopathy Plan:: We will schedule an L4-L5 lumbar epidural steroid injection for the patient at the beginning of April. I will follow-up with the patient after this. Patient knows that he needs to be off her blood thinner prior to this. We will discussed this with her primary care physician. This note was dictated using voice recognition software and may contain errors or omissions
== END ==
PROVIDERS: PCP Family Medicine; Visit Provider Clinical Nurse Specialist Family Health
DX: M51.16 Intervertebral disc disorders with radiculopathy, lumbar region (principal)
CPT/HCPCS: 99213

== ENCOUNTER → 2018-05-23 15:00 | Outpatient (POV) | payer MEDICARE, MEDICAID, SELFPAY ==
[2018-05-23 15:26] VITALS: BP 113/67; PULSE 87; RESP 18; O2SAT 98; BMI 35.9
--- NOTE | 2018-05-23 15:42 | HMH.PAINSOAP ---
[facility] Pain Management SOAP Note Subjective:: She is a pleasant 78-year-old white female who presents today for follow-up after lumbar epidural steroid injection. She states she is doing quite well. She stated that she got 80% relief of her symptoms after her injection. She rates her pain an 8 out of 10 however she states is because it is a arthritis flare. Patient would like another injection at the end of May. Patient has permission to come off of her blood thinner. She is also on [place] 5 mg 1 p.o. twice daily. She states that this is beneficial. Patient is continuing a home stretching program. ROS General: no recent weight change, no fever, no sleep disturbances Respiratory: no cough, no shortness of air, no recurring pulmonary infections Cardiovascular/Peripheral Vascular: No chest pain, No palpitations, no edema, no shortness of breath. Gastrointestinal: no incontinence, normal bowel movements reported Genitourinary: no incontinence Musculoskeletal: Back pain, leg pain Psychiatric: normal mood/ affect Neurological: [denies weakness in extremities], [denies balance issues] Objective:: Physical Exam General: Alert and oriented x3, no acute distress, pleasant and cooperative, [on room air] Lungs: Resps E/U, Symmetrical chest expansion, Eyes: PERRL Musculoskeletal: Flexion and extension of lumbar spine somewhat guarded secondary to pain, deep tendon reflexes normal, strength in upper and lower extremities [5/5], [abnormal gait noted] Neurological: speech clear, shotblaster equal, no gross sensory deficits Assessment:: Degenerative disc disease lumbar spine with lumbar radiculopathy and postlaminectomy syndrome of the lumbar spine Plan:: We will refill the patient's [place] 5 mg 1 p.o. twice daily. We will give her 2 months worth of prescriptions. We will also schedule a lumbar epidural steroid injection for at L4-L5 at the end of May. Patient has permission to come off of her blood thinners for these. Patient has been prescribed a controlled substance after being counseled on the medication, medication safety, and possible side effects. CARRIE report has been obtained and reviewed prior to prescription and found to be appropriate. Opioid contract was reviewed and signed by the patient, and that they have agreed to all of the terms set forth by our compliance program. Dr. Marte has reviewed this note and agrees with this plan of care. This note was dictated using voice recognition software and may contain errors or omissions
--- NOTE | 2018-05-23 15:45 | P.CONS_ITS ---
[facility] Pain Management SOAP Note Subjective:: She is a pleasant 78-year-old white female who presents today for follow-up after lumbar epidural steroid injection. She states she is doing quite well. She stated that she got 80% relief of her symptoms after her injection. She rates her pain an 8 out of 10 however she states is because it is a arthritis flare. Patient would like another injection at the end of May. Patient has permission to come off of her blood thinner. She is also on [place] 5 mg 1 p.o. twice daily. She states that this is beneficial. Patient is continuing a home stretching program. ROS General: no recent weight change, no fever, no sleep disturbances Respiratory: no cough, no shortness of air, no recurring pulmonary infections Cardiovascular/Peripheral Vascular: No chest pain, No palpitations, no edema, no shortness of breath. Gastrointestinal: no incontinence, normal bowel movements reported Genitourinary: no incontinence Musculoskeletal: Back pain, leg pain Psychiatric: normal mood/ affect Neurological: [denies weakness in extremities], [denies balance issues] Objective:: Physical Exam General: Alert and oriented x3, no acute distress, pleasant and cooperative, [on room air] Lungs: Resps E/U, Symmetrical chest expansion, Eyes: PERRL Musculoskeletal: Flexion and extension of lumbar spine somewhat guarded secondary to pain, deep tendon reflexes normal, strength in upper and lower extremities [5/5], [abnormal gait noted] Neurological: speech clear, electronic development technician equal, no gross sensory deficits Assessment:: Degenerative disc disease lumbar spine with lumbar radiculopathy and postlaminectomy syndrome of the lumbar spine Plan:: We will refill the patient's [place] 5 mg 1 p.o. twice daily. We will give her 2 months worth of prescriptions. We will also schedule a lumbar epidural steroid injection for at L4-L5 at the end of May. Patient has permission to come off of her blood thinners for these. Patient has been prescribed a controlled substance after being counseled on the medication, medication safety, and possible side effects. CARRIE report has been obtained and reviewed prior to prescription and found to be appropriate. Opioid contract was reviewed and signed by the patient, and that they have agreed to all of the terms set forth by our compliance program. Dr. Marte has reviewed this note and agrees with this plan of care. This note was dictated using voice recognition software and may contain errors or omissions
== END ==
PROVIDERS: PCP Family Medicine; Visit Provider Clinical Nurse Specialist Family Health
DX: M51.16 Intervertebral disc disorders with radiculopathy, lumbar region (principal); M96.1 Postlaminectomy syndrome, not elsewhere classified
CPT/HCPCS: 99213

== ENCOUNTER → 2018-05-26 11:21 | Outpatient (CLI) | payer MEDICARE, MEDICAID, SELFPAY ==
--- NOTE | 2018-05-26 11:26 | XR_ITS ---
XR chest 2V HISTORY: ITS.REASON: COUGH ORDERING PHYSICIAN: Jonathon Luna MD PATIENT AGE: 78 years COMPARISON: 04/12/2017 FINDINGS: There has been a prior CABG. There is mild cardiomegaly without failure. No lobar consolidation or collapse. Chronic thoracic kyphosis is noted with degenerative changes in the thoracic spine. 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 IMPRESSION: Cardiomegaly, prior CABG, no acute finding
== END ==
PROVIDERS: PCP Family Medicine; Visit Provider Family Medicine
DX: R05 Cough (principal)
CPT/HCPCS: 71046

== ENCOUNTER → 2018-08-02 08:52 | Outpatient (POV) | payer MEDICARE, MEDICAID, SELFPAY ==
[2018-08-02 09:22] VITALS: BP 135/63; PULSE 76; RESP 18; O2SAT 98; BMI 34.7
--- NOTE | 2018-08-02 09:37 | HMH.PAINSOAP ---
[facility] Pain Management SOAP Note Subjective:: Patient is a pleasant 78-year-old white female who presents today for follow-up of a lumbar epidural steroid injection of L4-L5. She is being treated for degenerative disc disease of lumbar spine with lumbar radiculopathy symptoms and post laminectomy syndrome of lumbar spine. She has had injections in the past. The patient states that the injections are effective generally for a few weeks, with the pain returning after this. Today she rates her pain an 8 out of 10 Being medically managed with [place] 5 mg 1 p.o. twice daily. Patient denies side effects to medication. [facility] #[id number] reviewed and appropriate. ROS General: no recent weight change, no fever, no sleep disturbances Respiratory: no cough, no shortness of air, no recurring pulmonary infections Cardiovascular/Peripheral Vascular: No chest pain, No palpitations, no edema, no shortness of breath. Gastrointestinal: no incontinence, normal bowel movements reported Genitourinary: no incontinence Musculoskeletal: Back pain Psychiatric: normal mood/ affect, [denies depression], [denies anxiety] Neurological: [denies weakness in extremities], [denies balance issues] . Objective:: Physical Exam General: Alert and oriented x3, no acute distress, pleasant and cooperative, [on room air] Lungs: Resps E/U, Symmetrical chest expansion, Eyes: PERRL Musculoskeletal: Flexion and extension of lumbar spine somewhat guarded secondary to pain, deep tendon reflexes normal, strength in upper and lower extremities [5/5], slightly antalgic gait noted Neurological: speech clear, metal furniture assembly supervisor equal, no gross sensory deficits Assessment:: Degenerative disc disease of lumbar spine with lumbar radiculopathy symptoms and post laminectomy syndrome of lumbar spine Plan:: The patient would like to continue with just her oral medication regimen at this time. She has no interest in further injections right now, and states she will explore her options later. The patient is continuing a home stretching program, as well as anti-inflammatories. We will refill her [place] 5 mg p.o. twice daily. We will give her 1 month worth of medication and follow-up with her in months. She can pear picker her other 2 months in the interim. Patient will be pill count to help ensure compliance. She has been instructed to call the office if she has any issues prior to the next appointment. Patient has been prescribed a controlled substance after being counseled on the medication, medication safety, and possible side effects. CARRIE report has been obtained and reviewed prior to prescription and found to be appropriate. Opioid contract was reviewed and signed by the patient, and that they have agreed to all of the terms set forth by our compliance program. Dr. Marte has reviewed this note and agrees with this plan of care. This note was dictated using voice recognition software and may contain errors or omissions
--- NOTE | 2018-08-02 09:42 | P.CONS_ITS ---
[facility] Pain Management SOAP Note Subjective:: Patient is a pleasant 78-year-old white female who presents today for follow-up of a lumbar epidural steroid injection of L4-L5. She is being treated for degenerative disc disease of lumbar spine with lumbar radiculopathy symptoms and post laminectomy syndrome of lumbar spine. She has had injections in the past. The patient states that the injections are effective generally for a few weeks, with the pain returning after this. Today she rates her pain an 8 out of 10 Being medically managed with [place] 5 mg 1 p.o. twice daily. Patient denies side effects to medication. [facility] #[id number] reviewed and appropriate. ROS General: no recent weight change, no fever, no sleep disturbances Respiratory: no cough, no shortness of air, no recurring pulmonary infections Cardiovascular/Peripheral Vascular: No chest pain, No palpitations, no edema, no shortness of breath. Gastrointestinal: no incontinence, normal bowel movements reported Genitourinary: no incontinence Musculoskeletal: Back pain Psychiatric: normal mood/ affect, [denies depression], [denies anxiety] Neurological: [denies weakness in extremities], [denies balance issues] . Objective:: Physical Exam General: Alert and oriented x3, no acute distress, pleasant and cooperative, [on room air] Lungs: Resps E/U, Symmetrical chest expansion, Eyes: PERRL Musculoskeletal: Flexion and extension of lumbar spine somewhat guarded secondary to pain, deep tendon reflexes normal, strength in upper and lower extremities [5/5], slightly antalgic gait noted Neurological: speech clear, senior java architect equal, no gross sensory deficits Assessment:: Degenerative disc disease of lumbar spine with lumbar radiculopathy symptoms and post laminectomy syndrome of lumbar spine Plan:: The patient would like to continue with just her oral medication regimen at this time. She has no interest in further injections right now, and states she will explore her options later. The patient is continuing a home stretching program, as well as anti-inflammatories. We will refill her [place] 5 mg p.o. twice daily. We will give her 1 month worth of medication and follow-up with her in months. She can pickle processor her other 2 months in the interim. Patient will be pill count to help ensure compliance. She has been instructed to call the office if she has any issues prior to the next appointment. Patient has been prescribed a controlled substance after being counseled on the medication, medication safety, and possible side effects. CARRIE report has been obtained and reviewed prior to prescription and found to be appropriate. Opioid contract was reviewed and signed by the patient, and that they have agreed to all of the terms set forth by our compliance program. Dr. Marte has reviewed this note and agrees with this plan of care. This note was dictated using voice recognition software and may contain errors or omissions
[2018-08-02 14:23] LABS: Amphetamine/Metha Screen,Urine Negative ng/mL (<1000); Barbiturates Screen,Urine Negative ng/mL (<200); Benzodiazepines Screen,Urine Negative ng/mL (<200); Cannabinoid Screen,Urine Negative ng/mL (<50); Cocaine Screen,Urine Negative ng/mL (<300); Methadone Screen,Urine Negative ng/mL (<300); Opiate Screen,Urine Positive ng/mL (<300); Phencyclidine Screen,Urine Negative ng/mL (<25)
[2018-08-12 14:14] LABS: Codeine Negative (Cutoff=100); Hydrocodone Positive (.); Hydromorphone Negative (Cutoff=100); Morphine Negative (Cutoff=100)
[2018-08-12 17:50] LABS: Opiates Positive (.)
== END ==
PROVIDERS: PCP Family Medicine; Visit Provider Clinical Nurse Specialist Family Health
DX: M51.16 Intervertebral disc disorders with radiculopathy, lumbar region (principal); M96.1 Postlaminectomy syndrome, not elsewhere classified; Z79.899 Other long term (current) drug therapy
CPT/HCPCS: 80305; 80361; 80365; 99212; G0480

== ENCOUNTER → 2018-10-18 09:35 | Outpatient (POV) | payer MEDICARE, MEDICAID, SELFPAY ==
--- NOTE | 2018-10-18 10:10 | HMH.PAINSOAP ---
[facility] Pain Management SOAP Note Subjective:: Patient is a pleasant 78-year-old white female who presents today for medication refills. She is currently on [place] 5 mg 1 p.o. twice daily. She rates her pain 8 out of 10 which is her baseline. Patient is being treated for pain secondary to postlaminectomy syndrome of lumbar spine with lumbar radiculopathy. She is had injections in the past she states that it is time for another one. She is not on any anticoagulation therapy and is continuing home stretching program. She is currently on anti-inflammatories. ROS General: no recent weight change, no fever, no sleep disturbances Respiratory: no cough, no shortness of air, no recurring pulmonary infections Cardiovascular/Peripheral Vascular: No chest pain, No palpitations, no edema, no shortness of breath. Gastrointestinal: no incontinence, normal bowel movements reported Genitourinary: no incontinence Musculoskeletal: Back pain, leg pain Psychiatric: normal mood/ affect Neurological: [denies weakness in extremities], [denies balance issues] Objective:: Physical Exam General: Alert and oriented x3, no acute distress, pleasant and cooperative, [on room air] Lungs: Resps E/U, Symmetrical chest expansion, Eyes: PERRL Musculoskeletal: Flexion and extension of lumbar spine somewhat guarded secondary to pain, deep tendon reflexes normal, strength in upper and lower extremities [5/5], [abnormal gait noted] Neurological: 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 Patient is instructed to call the office if she has any issues prior to her next appointment will also refill her [place] 5 mg 1 p.o. twice daily. Carrie #[id number] reviewed and appropriate. Urine drug screens have been appropriate. Dr. Marte has reviewed this note and agrees with this plan of care. This note was dictated using voice recognition software and may contain errors or omissions Patient has been prescribed a controlled substance after being counseled on the medication, medication safety, and possible side effects. CARRIE report has been obtained and reviewed prior to prescription and found to be appropriate. Opioid contract was reviewed and signed by the patient, and that they have agreed to all of the terms set forth by our compliance program. Pain Management Hx Components *Have you ever received a pneumonia vaccine?: No *Have you received a flu vaccine this season?: Yes - *Social History *Occupational Status:: retired *Travel in the last 8 weeks: None
[2018-10-18 10:22] VITALS: BP 120/63; PULSE 77; RESP 18; O2SAT 98; BMI 37.0
== END ==
PROVIDERS: PCP Family Medicine; Visit Provider Clinical Nurse Specialist Family Health
DX: M51.16 Intervertebral disc disorders with radiculopathy, lumbar region (principal); M96.1 Postlaminectomy syndrome, not elsewhere classified
CPT/HCPCS: 99212

== ENCOUNTER → 2018-11-01 14:57 | Outpatient (CLI) | payer MEDICARE, MEDICAID, SELFPAY ==
--- NOTE | 2018-11-01 14:59 | CA_ITS ---
APPROVED REPORT EXAM: Comprehensive 2D, Doppler, and color-flow Echocardiogram Mental Health Specialist: Kennedi Rivera, RT(R) Ht: 5 ft 0 in Wt: 190lbs BSA: 1.83 BP: 113/63 mmHg Indications: Shortness of Breath, Dizziness and Vertigo, CAD, Hyperlipidemia, Hypertension/HDD 2D Dimensions IVSd 1.20 cm F: 0.6-1.0 LVEF (Visual) 71.10 % PWd 1.30 cm F: 0.6 - 1.0 LVDd 4.00 cm F: 3.9 - 5.3 LVDs 2.40 cm F: 2.2 - 3.5 LVOT 2.20 cm (M/F) 1.5-2.5 M-Mode Dimensions LA Diam 5.10 cm (1.9-4.0) Ao Diam 2.60 cm (2.0-3.7) AV Cusp 1.80 cm (1.5-2.6) LV Diastology E/A Ratio 0.7 MED E' 5.07 (< 7 cm/sec) E'/MED E' Ratio 13.40 (>14) LAT E' 12.00 (<10 cm/sec) E/LAT E' Ratio 5.70 (>14) Aortic Valve LVOT Max 128.50 (70-110 cm/s) LVOT VTI 20.20 cm AoV Peak Teja. 193.00 (50-130 cm/s) AO Peak GR. 15.00 mmHg AO Mean GR. 8.00 (<5 mmHg) AO VTI 31.00 (18-25 cm) Mitral Valve MV E Max Teja. 68.10 (40-130 cm/s) MV A Velocity 92.30 (40-130 cm/s) E/A Ratio 0.70 Left Ventricle Left atrium is mildly enlarged, left ventricle is normal size, mild concentric left ventricular hypertrophy, visually estimated ejection fraction 55% with no regional wall motion abnormality, grade 1 diastolic dysfunction seen without tissue Doppler evidence of raise left atrial pressure. Right Ventricle Right atrium and right ventricular normal size and contractility. Aortic Valve Aortic valve is minimally thickened and calcified, there is no aortic stenosis aortic insufficiency. Mitral Valve Mitral valve is grossly normal, there is no mitral stenosis, there is mild mitral regurgitation. Tricuspid Valve Tricuspid valve is grossly normal, there is mild tricuspid regurgitation. Tricuspid regurgitation jet velocity is inadequate for calculation of the right ventricular systolic pressure. Pulmonic Valve Pulmonic valve is poorly visualized. Great Vessels Aortic root is normal size. Pericardium No significant pericardial effusion noted Conclusion 1. Mildly in the left atrium, normal left ventricular size, mild concentric left ventricular hypertrophy, visually estimated ejection fraction 55% with no regional wall motion abnormality. Grade 1 diastolic dysfunction seen without tissue Doppler evidence of raise left atrial pressure. 2. Mild mitral and tricuspid regurgitation 3. No significant pericardial effusion noted. Electronically signed by : Alberto Jiménez, 11/04/2018 17:39:09
== END ==
PROVIDERS: PCP Family Medicine; Visit Provider Urology
DX: R06.00 Dyspnea, unspecified (principal)
CPT/HCPCS: 93306

== ENCOUNTER → 2018-12-26 10:07 | Outpatient (POV) | payer MEDICARE, MEDICAID, SELFPAY ==
[2018-12-26 10:27] VITALS: BP 132/73; PULSE 84; RESP 18; O2SAT 98; BMI 37.0
--- NOTE | 2018-12-26 12:51 | HMH.PAINSOAP ---
[facility] Pain Management SOAP Note Subjective:: Patient is a pleasant 78-year-old white female who presents today for follow-up and medication refills. Patient had a lumbar epidural steroid injection which she got 90% relief of her symptomology for 3 weeks. Patient would like to repeat this. If her pain is since been exacerbated by increased activity. She rates her pain today 10 out of 10. Patient Carrie #[id number] reviewed and appropriate patient is currently on [place] 5 mg 1 p.o. twice daily she denies side effects this medication. ROS General: no recent weight change, no fever, no sleep disturbances Respiratory: no cough, no shortness of air, no recurring pulmonary infections Cardiovascular/Peripheral Vascular: No chest pain, No palpitations, no edema, no shortness of breath. Gastrointestinal: no new onset incontinence, normal bowel movements reported Genitourinary: no new onset incontinence Musculoskeletal: Back pain, leg pain Psychiatric: normal mood/ affect, Neurological: [denies new onset weakness in extremities], [denies new onset balance issues] Objective:: Physical Exam General: Alert and oriented x3, no acute distress, pleasant and cooperative, [on room air] Lungs: Resps E/U, Symmetrical chest expansion Eyes: PERRL Musculoskeletal: Flexion and extension of lumbar spine somewhat guarded secondary to pain, deep tendon reflexes normal, strength in upper and lower extremities [5/5], [abnormal gait noted] Neurological: speech clear, technician automated equipment equal, no gross sensory deficits Assessment:: Degenerative disc disease lumbar spine with lumbar radiculopathy Plan:: We will refill her [place] 5 mg 1 p.o. twice daily give her 2 months worth of medication and see her back in for a another lumbar epidural steroid injection. At the L4-L5 level. Patient is on blood thinners however she knows that she is to be off of them prior to her injection. Patient does not feel well today. We will drug screen her at her next visit. Patient has been prescribed a controlled substance after being counseled on the medication, medication safety, and possible side effects. CARRIE report has been obtained and reviewed prior to prescription and found to be appropriate. Opioid contract was reviewed and signed by the patient, and that they have agreed to all of the terms set forth by our compliance program. Dr. Marte has reviewed this note and agrees with this plan of care. This note was dictated using voice recognition software and may contain errors or omissions [facility] History I have reviewed the patient's past medical history: Yes Medical History: Reports:: Coronary Artery Disease, Diabetes Mellitus Type 2, Hyperlipidemia, Hypertension Denies:: Cancer, Diabetes Mellitus Type 1, MRSA, Seizures *Have you ever received a pneumonia vaccine?: Yes *Have you received a flu vaccine this season?: Yes Other Medical History: Reports: Arthritis. Denies: Blood Transfusion Reaction Laterality Cases: Left: Arthroscopy Shoulder Other Surgeries: Yes: Cholecystectomy, Hysterectomy-Total, Other Amputation: No Fractures: No - *Social History Smoking Status: Never smoker Alcohol Intake: never Alcohol Intake Frequency:: other Substance Use Type: denies use *Occupational Status:: other Housing: house *Travel in the last 8 weeks: None Family Hx:: Coronary Artery Disease
--- NOTE | 2018-12-26 12:54 | P.CONS_ITS ---
[facility] Pain Management SOAP Note Subjective:: Patient is a pleasant 78-year-old white female who presents today for follow-up and medication refills. Patient had a lumbar epidural steroid injection which she got 90% relief of her symptomology for 3 weeks. Patient would like to repeat this. If her pain is since been exacerbated by increased activity. She rates her pain today 10 out of 10. Patient Carrie #[id number] reviewed and appropriate patient is currently on [place] 5 mg 1 p.o. twice daily she denies side effects this medication. ROS General: no recent weight change, no fever, no sleep disturbances Respiratory: no cough, no shortness of air, no recurring pulmonary infections Cardiovascular/Peripheral Vascular: No chest pain, No palpitations, no edema, no shortness of breath. Gastrointestinal: no new onset incontinence, normal bowel movements reported Genitourinary: no new onset incontinence Musculoskeletal: Back pain, leg pain Psychiatric: normal mood/ affect, Neurological: [denies new onset weakness in extremities], [denies new onset balance issues] Objective:: Physical Exam General: Alert and oriented x3, no acute distress, pleasant and cooperative, [on room air] Lungs: Resps E/U, Symmetrical chest expansion Eyes: PERRL Musculoskeletal: Flexion and extension of lumbar spine somewhat guarded secondary to pain, deep tendon reflexes normal, strength in upper and lower extremities [5/5], [abnormal gait noted] Neurological: speech clear, pump tester equal, no gross sensory deficits Assessment:: Degenerative disc disease lumbar spine with lumbar radiculopathy Plan:: We will refill her [place] 5 mg 1 p.o. twice daily give her 2 months worth of medication and see her back in for a another lumbar epidural steroid injection. At the L4-L5 level. Patient is on blood thinners however she knows that she is to be off of them prior to her injection. Patient does not feel well today. We will drug screen her at her next visit. Patient has been prescribed a controlled substance after being counseled on the medication, medication safety, and possible side effects. CARRIE report has been obtained and reviewed prior to prescription and found to be appropriate. Opioid contract was reviewed and signed by the patient, and that they have agreed to all of the terms set forth by our compliance program. Dr. Marte has reviewed this note and agrees with this plan of care. This note was dictated using voice recognition software and may contain errors or omissions [facility] History I have reviewed the patient's past medical history: Yes Medical History: Reports:: Coronary Artery Disease, Diabetes Mellitus Type 2, Hyperlipidemia, Hypertension Denies:: Cancer, Diabetes Mellitus Type 1, MRSA, Seizures *Have you ever received a pneumonia vaccine?: Yes *Have you received a flu vaccine this season?: Yes Other Medical History: Reports: Arthritis. Denies: Blood Transfusion Reaction Laterality Cases: Left: Arthroscopy Shoulder Other Surgeries: Yes: Cholecystectomy, Hysterectomy-Total, Other Amputation: No Fractures: No - *Social History Smoking Status: Never smoker Alcohol Intake: never Alcohol Intake Frequency:: other Substance Use Type: denies use *Occupational Status:: other Housing: house *Travel in the last 8 weeks: None Family Hx:: Coronary Artery Disease
== END ==
PROVIDERS: PCP Family Medicine; Visit Provider Clinical Nurse Specialist Family Health
DX: M51.16 Intervertebral disc disorders with radiculopathy, lumbar region (principal)
CPT/HCPCS: 99212

== ENCOUNTER → 2019-02-20 12:35 | Outpatient (POV) | payer MEDICARE, MEDICAID, SELFPAY ==
[2019-02-20 13:19] VITALS: BP 138/72; PULSE 82; RESP 18; O2SAT 99; BMI 37.0
--- NOTE | 2019-02-22 12:35 | P.CONS_ITS ---
[facility] Pain Management SOAP Note Subjective:: Patient is a pleasant 78-year-old white female who we are treating for low back pain lumbar radiculopathy. Patient had an epidural injection and states that it helped up to 80% and she rates her pain a 4 out of 10 she would like to repeat this 1 time. She is also [place] 5 mg 1 p.o. twice daily and states that this is very beneficial for her. [facility] #[id number] reviewed and appropriate. Patient states that the injections help her become more active. She would like to do a repeat injection given the efficacy of it. She is not on any anticoagulation therapy. ROS General: no recent weight change, no fever, no sleep disturbances Respiratory: no cough, no shortness of air, no recurring pulmonary infections Cardiovascular/Peripheral Vascular: No chest pain, No palpitations, no edema, no shortness of breath. Gastrointestinal: no new onset incontinence, normal bowel movements reported Genitourinary: no new onset incontinence Musculoskeletal: Back pain, leg pain Psychiatric: normal mood/ affect Neurological: [denies new onset weakness in extremities], [denies new onset balance issues] Objective:: Physical Exam General: Alert and oriented x3, no acute distress, pleasant and cooperative, [on room air] Lungs: Resps E/U, Symmetrical chest expansion, Eyes: PERRL Musculoskeletal: Flexion and extension of lumbar spine somewhat guarded secondary to pain, deep tendon reflexes normal, strength in upper and lower extremities [5/5], [abnormal gait noted] Neurological: speech clear, 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 Patient's been instructed to call the office if she has any issues prior to her next appointment. I will follow-up with her after injection. Patient continues a home stretching program. Dr. Marte has reviewed this note and agrees with this plan of care. This note was dictated using voice recognition software and may contain errors or omissions [facility] History I have reviewed the patient's past medical history: Yes Medical History: Reports:: Coronary Artery Disease, Diabetes Mellitus Type 2, Hyperlipidemia, Hypertension Denies:: Cancer, Diabetes Mellitus Type 1, MRSA, Seizures *Have you ever received a pneumonia vaccine?: Yes *Have you received a flu vaccine this season?: Yes Other Medical History: Reports: Arthritis. Denies: Blood Transfusion Reaction Laterality Cases: Left: Arthroscopy Shoulder Other Surgeries: Yes: Cholecystectomy, Hysterectomy-Total, Other Amputation: No Fractures: No - *Social History Smoking Status: Never smoker Alcohol Intake: never Alcohol Intake Frequency:: other Substance Use Type: denies use *Occupational Status:: other Housing: house *Travel in the last 8 weeks: None Family Hx:: Coronary Artery Disease
== END ==
PROVIDERS: PCP Family Medicine; Visit Provider Clinical Nurse Specialist Family Health
DX: M51.16 Intervertebral disc disorders with radiculopathy, lumbar region (principal)
CPT/HCPCS: 99212

== ENCOUNTER → 2019-03-27 10:20 | Outpatient (POV) | payer MEDICARE, MEDICAID, SELFPAY ==
[2019-03-27 10:30] VITALS: BP 125/60; PULSE 84; RESP 18; O2SAT 99; BMI 37.0
[2019-03-27 12:17] LABS: Amphetamine/Metha Screen,Urine Negative ng/mL (<1000); Barbiturates Screen,Urine Negative ng/mL (<200); Benzodiazepines Screen,Urine Negative ng/mL (<200); Cannabinoid Screen,Urine Negative ng/mL (<50); Cocaine Screen,Urine Negative ng/mL (<300); Methadone Screen,Urine Negative ng/mL (<300); Opiate Screen,Urine Positive ng/mL (<300); Phencyclidine Screen,Urine Negative ng/mL (<25)
--- NOTE | 2019-03-28 08:32 | HMH.PAINSOAP ---
[facility] Pain Management SOAP Note Subjective:: Patient is a very pleasant 78-year-old white female who we are treating for low back pain. Patient is following up after her lumbar epidural steroid injection. Patient has done well with this however since her last injection her pain symptomology has begun to change. Patient rates her pain today a 6 out of 10. Patient's pain has become much more focal in her low back. Patient and I have discussed a medial branch block. Patient is interested in pursuing this. Patient was given information in regards to the injection and it was also explained to her that it was diagnostic in nature that she potentially could be a neurotomy candidate. She is not on any anticoagulation therapy. Patient has tried and failed medications, anti-inflammatories. She is also on hydrocodone 5 mg 1 p.o. twice daily. She denies side effects or medication. [facility] #[id number] reviewed and appropriate. Patient is interested in moving forward with a medial branch block. Patient does have a positive Kemps test lumbar spine facet loading is also positive. ROS General: no recent weight change, no fever, no sleep disturbances Respiratory: no cough, no shortness of air, no recurring pulmonary infections Cardiovascular/Peripheral Vascular: No chest pain, No palpitations, no edema, no shortness of breath. Gastrointestinal: no new onset incontinence, normal bowel movements reported Genitourinary: no new onset incontinence Musculoskeletal: Low back pain Psychiatric: normal mood/ affect, Neurological: [denies new onset weakness in extremities], [denies new onset balance issues] Objective:: Physical Exam General: Alert and oriented x3, no acute distress, pleasant and cooperative, [on room air] Lungs: Resps E/U, Symmetrical chest expansion, Eyes: PERRL Musculoskeletal: Flexion and extension of lumbar spine somewhat guarded secondary to pain, deep tendon reflexes normal, strength in upper and lower extremities [5/5], [abnormal gait noted] Neurological: speech clear, fountain dispenser equal, no gross sensory deficits Assessment:: Degenerative 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 Again patient was given information in regards to this he was also explained to the patient in detail. Patient has been instructed to call the office if she has any issues prior to her next appointment. I will follow-up with her after her injection reassess her symptoms at that time. Dr. Marte has reviewed this note and agrees with this plan of care. This note was dictated using voice recognition software and may contain errors or omissions [facility] History I have reviewed the patient's past medical history: Yes Medical History: Reports:: Coronary Artery Disease, Diabetes Mellitus Type 2, Hyperlipidemia, Hypertension Denies:: Cancer, Diabetes Mellitus Type 1, MRSA, Seizures *Have you ever received a pneumonia vaccine?: Yes *Have you received a flu vaccine this season?: Yes Other Medical History: Reports: Arthritis. Denies: Blood Transfusion Reaction Laterality Cases: Left: Arthroscopy Shoulder Other Surgeries: Yes: Cholecystectomy, Hysterectomy-Total, Other Amputation: No Fractures: No - *Social History Smoking Status: Never smoker Alcohol Intake: never Alcohol Intake Frequency:: other Substance Use Type: denies use *Occupational Status:: other Housing: house *Travel in the last 8 weeks: None Family Hx:: Coronary Artery Disease
[2019-03-30 13:55] LABS: Codeine Negative (Cutoff=100); Hydrocodone Positive (.); Hydromorphone Negative (Cutoff=100); Morphine Negative (Cutoff=100)
[2019-03-30 17:00] LABS: Opiates Positive (.)
== END ==
PROVIDERS: PCP Family Medicine; Visit Provider Clinical Nurse Specialist Family Health
DX: M51.36 Other intervertebral disc degeneration, lumbar region (principal); Z79.899 Other long term (current) drug therapy; M54.06 Panniculitis affecting regions of neck and back, lumbar region; M47.816 Spondylosis without myelopathy or radiculopathy, lumbar region; I25.10 Atherosclerotic heart disease of native coronary artery without angina pectoris; E11.9 Type 2 diabetes mellitus without complications; E78.5 Hyperlipidemia, unspecified; I10 Essential (primary) hypertension
CPT/HCPCS: 80305; 80361; 80365; 99212; G0480

== ENCOUNTER → 2019-08-22 10:42 | Outpatient (POV) | payer MEDICARE, MEDICAID, SELFPAY ==
[2019-08-22 11:12] VITALS: BP 129/71; PULSE 89; RESP 18; O2SAT 99; BMI 37.0
--- NOTE | 2019-08-22 14:52 | HMH.PAINSOAP ---
[facility] Pain Management SOAP Note Subjective:: Patient is a pleasant 79-year-old white female who presents today for follow-up after lumbar medial branch block. Patient was doing well however after the pandemic she was unable to get her next medial branch block. Her pain has returned she rates it a 9 out of 10. She receives 80% relief of her symptomology with her injections for up to 3 months. Patient has increased pain with extension and twisting. She is tender over her facet joints. She is also being medically managed with Lyons 5 mg 1 p.o. twice daily. She states that this is very effective for her. Carrie #[id number] reviewed and appropriate.. ROS General: no recent weight change, no fever, no sleep disturbances Respiratory: no cough, no shortness of air, no recurring pulmonary infections Cardiovascular/Peripheral Vascular: No chest pain, No palpitations, no edema, no shortness of breath. Gastrointestinal: no new onset incontinence, normal bowel movements reported Genitourinary: no new onset incontinence Musculoskeletal: Back pain Psychiatric: normal mood/ affect Neurological: [denies new onset weakness in extremities], [denies new onset balance issues] Objective:: Physical Exam General: Alert and oriented x3, no acute distress, pleasant and cooperative, [on room air] Lungs: Resps E/U, Symmetrical chest expansion, Eyes: PERRL Musculoskeletal: Flexion and extension of lumbar spine somewhat guarded secondary to pain, deep tendon reflexes normal, strength in upper and lower extremities [5/5], [abnormal gait noted] Neurological: speech clear, decorator hand equal, no gross sensory deficits Assessment:: 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 twice daily and set her up for an L4-L5 L5-S1 bilateral medial branch block given the efficacy of that that this in the past she is not on any anticoagulation therapy. I will follow-up with her after this reassess her symptoms at that time. She is been instructed to call the office if she has any issues prior to her next appointment. Patient has been prescribed a controlled substance after being counseled on the medication, medication safety, and possible side effects. CARRIE report has been obtained and reviewed prior to prescription and found to be appropriate. Opioid contract was reviewed and signed by the patient, and that they have agreed to all of the terms set forth by our compliance program. Dr. Marte has reviewed this note and agrees with this plan of care. This note was dictated using voice recognition software and may contain errors or omissions [facility] History I have reviewed the patient's past medical history: Yes Medical History: Reports:: Coronary Artery Disease, Diabetes Mellitus Type 2, Hyperlipidemia, Hypertension Denies:: Cancer, Diabetes Mellitus Type 1, MRSA, Seizures *Have you ever received a pneumonia vaccine?: Yes *Have you received a flu vaccine this season?: Yes Other Medical History: Reports: Arthritis. Denies: Blood Transfusion Reaction Laterality Cases: Left: Arthroscopy Shoulder Other Surgeries: Yes: Cholecystectomy, Hysterectomy-Total, Other Amputation: No Fractures: No - *Social History Smoking Status: Never smoker Alcohol Intake: never Alcohol Intake Frequency:: other Substance Use Type: denies use *Occupational Status:: other Housing: house *Travel in the last 8 weeks: None Family Hx:: Coronary Artery Disease
== END ==
PROVIDERS: PCP Family Medicine; Visit Provider Clinical Nurse Specialist Family Health
DX: M51.36 Other intervertebral disc degeneration, lumbar region (principal); M12.88 Other specific arthropathies, not elsewhere classified, other specified site; M47.816 Spondylosis without myelopathy or radiculopathy, lumbar region
CPT/HCPCS: 99212

== ENCOUNTER 2019-09-08 09:10 | Day surgery (SDC) | payer MEDICARE, MEDICAID, SELFPAY ==
[2019-09-08 09:27] VITALS: BP 140/69; PULSE 84; RESP 18; TEMP 35.8; O2SAT 95; BMI 37.0
[2019-09-08 09:58] VITALS: BP 135/88; PULSE 88
--- NOTE | 2019-09-08 10:00 | HMH.PMPROC ---
- Procedure Date: 09/08/19 Time: 10:01 Anesthesiologist:: Eugene Marte MD Complications:: None Pre-procedure Diagnosis:: Degenerative disc disease of lumbar spine with lumbar spondylosis and facet arthropathy of lumbar spine Post-procedure Diagnosis:: Same Indications for Procedure:: This patient is a pleasant 79-year-old white female who we are treating for low back pain with lumbar spondylosis and facet arthropathy of lumbar spine. She last got 80% relief of her pain symptoms after facet joint injections for up to 3 months. She has had some increasing pain recently. Her appointment has been delayed because of COVID-19. We will plan on repeat bilateral lumbar medial branch blocks today to help her with her pain symptoms. Procedure Details:: Lumbar medial branch block Informed consent was obtained and the risks and benefits of the procedure was explained to the patient. The back was prepped using ChloraPrep. The skin and subcutaneous tissues were anesthetized using lidocaine. I placed 22-gauge spinal needles into the facet joint/medial branches of L4-L5 and L5-S1 bilaterally. Needle placement was confirmed with dye. After this we injected 4 mL bupivacaine 0.25% and Depo-Medrol 20 mg into each facet joint/medial branch of L4-L5 and L5-S1 bilaterally. We used a total of 80 mg Depo-Medrol for both levels bilaterally. The patient tolerated the procedure well with no complications. Plan and Disposition:: We will follow-up with her in 2 weeks. Will reevaluate her symptoms at that time.
[2019-09-08 10:08] VITALS: BP 145/68; PULSE 80; RESP 20; O2SAT 94
== END 2019-09-08 10:09 | disposition home or self-care (01) ==
LOC: SC.PAINP 09:12
PROVIDERS: PCP Family Medicine; Visit Provider Anesthesiology
DX: M51.36 Other intervertebral disc degeneration, lumbar region (principal); M47.816 Spondylosis without myelopathy or radiculopathy, lumbar region; M12.88 Other specific arthropathies, not elsewhere classified, other specified site; I10 Essential (primary) hypertension; I25.10 Atherosclerotic heart disease of native coronary artery without angina pectoris; E11.9 Type 2 diabetes mellitus without complications; Z95.1 Presence of aortocoronary bypass graft; E78.49 Other hyperlipidemia; K21.9 Gastro-esophageal reflux disease without esophagitis; Z79.82 Long term (current) use of aspirin; Z79.84 Long term (current) use of oral hypoglycemic drugs; Z79.899 Other long term (current) drug therapy
CPT/HCPCS: 64493; 64494; J1030; Q9966

== ENCOUNTER → 2019-09-25 10:43 | Outpatient (POV) | payer MEDICARE, MEDICAID, SELFPAY ==
[2019-09-25 11:02] VITALS: BP 147/81; PULSE 85; RESP 18; O2SAT 98; BMI 38.7
--- NOTE | 2019-09-25 11:22 | HMH.PAINSOAP ---
[facility] Pain Management SOAP Note Subjective:: Patient is a pleasant 79-year-old white female who presents today for follow-up after medial branch block/facet joint injections at 4 L5 and L5-S1 bilaterally. Patient says she got about 90% relief after her injections. She rates her pain a 2 out of 10 at this time. She says she does not have much pain when she is sitting. She does report leaning forward or extension at her waist does cause her worsening pain. She says her pain is slowly returning. She did discuss undergoing an RFA with Dr. hernandez at her last visit. She would like to proceed with this. Patient is also asking for a lumbar brace. She had one in the past and this did give her some relief with extension turning at her waist. She says her brace that she previously had is broken. Patient also needs a refill on her medication of Roxbury 5 mg 1 tablet p.o. twice daily. Patient's Yahir #[id number] has been reviewed and is appropriate. The patient's urine drug screens have been appropriate. Her morphine equivalent is 10. Review of Systems General: No recent weight changes, no fever, no sleep disturbances Respiratory: No cough, no shortness of air, no recurring pulmonary infections Cardiovascular/peripheral vascular: No chest pain, no palpitations, no edema, no shortness of breath Gastrointestinal: No new onset incontinence, normal bowel movements reported Genitourinary: No new onset incontinence Musculoskeletal: Low back pain Psychiatric: Normal mood/affect Neurological: [Denies weakness in extremities], [denies balance issues] Objective:: Physical exam General: Alert and oriented x3, no acute distress, pleasant and cooperative, [on room air] Lungs: Respirations even and unlabored, symmetrical chest expansion Eyes: PERRL Musculoskeletal: Flexion and extension of bar spine somewhat guarded secondary to pain, deep tendon reflexes normal, strength in upper and lower extremities [5/5], [abnormal gait noted] positive Kemps test Neurological: Speech clear, matrix bath attendant equal, no gross sensory deficit Assessment:: Degenerative disc disease lumbar spine, spondylosis and facet arthropathy lumbar spine Plan:: We will schedule the patient for an RFA on the left side at L4-L5 L5-S1. The patient says her pain is worse on the left side today. Patient is on Xarelto. She does understand she will need to hold her anticoagulation therapy. She is in agreement. We will also order the patient Roxbury 5 mg 1 tablet p.o. twice daily. We will give her a lumbar brace for support of her spine. We will see her back in the clinic after her injection to reassess her symptoms. Patient has been instructed to contact clinic if she has any concerns before next appointment. The patient and I specifically discussed risk factors for COVID19. These risks include, but are not limited to age greater than 60, heart or lung disease, diabetes, immunosuppression, and travel. We also discussed NSAIDs may worsen COVID19 infection or symptoms. Patient should not use NSAIDs to treat COVID19 signs or symptoms. Patient was also informed that any type of corticosteroid of any form (oral or injection) will decrease the patient's immune system response and may increase the likelihood of COVID19 infection [address] symptoms[address] Marte has reviewed this note and agrees with this plan of care. This note was dictated using voice recognition software and make contain errors or omissions. [facility] History I have reviewed the patient's past medical history: Yes Medical History: Reports:: Coronary Artery Disease, Diabetes Mellitus Type 2, Hyperlipidemia, Hypertension Denies:: Cancer, Diabetes Mellitus Type 1, MRSA, Seizures *Have you ever received a pneumonia vaccine?: Yes *Have you received a flu vaccine this season?: Yes Other Medical History: Reports: Arthritis. Denies: Blood Transfusion Reaction Laterality Cases: Left: Arthroscopy Shoulder Other Surgeries: Yes: CABG, Cholecystectomy,
== END ==
PROVIDERS: PCP Family Medicine; Visit Provider Clinical Nurse Specialist Family Health
DX: M51.36 Other intervertebral disc degeneration, lumbar region (principal); M47.816 Spondylosis without myelopathy or radiculopathy, lumbar region; M12.88 Other specific arthropathies, not elsewhere classified, other specified site
CPT/HCPCS: 99212

== ENCOUNTER 2019-11-24 11:03 | Day surgery (SDC) | payer MEDICARE, MEDICAID, SELFPAY ==
[2019-11-24 12:10] VITALS: BP 107/63; PULSE 81; RESP 18; TEMP 36.6; O2SAT 93; BMI 38.0
[2019-11-24 12:33] VITALS: BP 132/77; PULSE 85; RESP 18
[2019-11-24 12:34] VITALS: BP 142/74; PULSE 85; RESP 18; O2SAT 99
--- NOTE | 2019-11-24 12:37 | HMH.PMPROC ---
- Procedure Date: 11/24/19 Time: 12:37 Anesthesiologist:: Eugene Marte MD Complications:: None Pre-procedure Diagnosis:: Degenerative disc disease of lumbar spine with lumbar spondylosis and facet arthropathy of lumbar spine Post-procedure Diagnosis:: Same Indications for Procedure:: Patient is a pleasant 79-year-old white female who we are treating for low back pain with lumbar spondylosis and facet arthropathy. She is done well with medial branch blocks of L4-5 and L5-S1 bilaterally. She gets 90% relief of her pain symptoms for several weeks. She presents for left-sided two-level RFA today of L4-5 and L5-S1. We will follow-up with the right side in 2 weeks. Procedure Details:: Lumbar RFA informed consent was obtained and the risk and benefits of the procedure was explained to the patient. Patient was placed prone on the procedure table. The patient was prepped and draped in sterile fashion. C-arm fluoroscopy was used to view the lumbar spine. The skin and subcutaneous tissues were anesthetized using lidocaine. I placed 20-gauge RF needles into the facet joints of L4-5 and L5-S1 on the left side. We underwent sensory stimulation. There is good sensory stimulation at 0.8 V. We underwent motor stimulation. There is no motor stimulation at 2 V. We then anesthetized these levels with lidocaine and Depo-Medrol. I used a total of 40 mg Depo-Medrol for both levels. I then burned both levels of L4-5 and L5-S1 medial branches on the left side for 4 minutes at 80 ?C. Patient tolerated the procedure well with no complications. Plan and Disposition:: We will follow-up with her in 2 weeks. Will reevaluate her symptoms at that time. We will plan on RF ablation to the facet joint/medial branches of L4-5 and L5-S1 on the right side.
[2019-11-24 12:50] VITALS: BP 147/67; PULSE 79; RESP 18; O2SAT 93
== END 2019-11-24 12:50 | disposition home or self-care (01) ==
LOC: SC.PAINP 11:04
PROVIDERS: PCP Family Medicine; Visit Provider Anesthesiology
DX: M51.36 Other intervertebral disc degeneration, lumbar region (principal); M47.816 Spondylosis without myelopathy or radiculopathy, lumbar region; M12.88 Other specific arthropathies, not elsewhere classified, other specified site; I10 Essential (primary) hypertension; E11.9 Type 2 diabetes mellitus without complications; K21.9 Gastro-esophageal reflux disease without esophagitis; I25.10 Atherosclerotic heart disease of native coronary artery without angina pectoris; E78.5 Hyperlipidemia, unspecified; J45.909 Unspecified asthma, uncomplicated; F41.9 Anxiety disorder, unspecified; F32.9 Major depressive disorder, single episode, unspecified; Z95.1 Presence of aortocoronary bypass graft
CPT/HCPCS: 64635; 64636; J1040

== ENCOUNTER → 2019-11-30 11:42 | Outpatient (CLI) | payer MEDICARE, MEDICAID, SELFPAY ==
--- NOTE | 2019-11-30 11:42 | NM_ITS ---
APPROVED REPORT Exam: Nuclear Stress Test Indication: CAD, CABG, HTN, OBESITY, D.M., HYPERLIPIDEMIA, FM. HX, C.P., SOB, ABN EKG Patient Location: Outpatient [place] Tech:Rosa Mariajohnny KwokHAYES simeon RT (R)(N)(M) Ht: 5 ft 0 in Wt: 195 lbs Bra Size: 44DD BSA: 1.85 m2 History: CAD, CABG, HTN, OBESITY, D.M., HYPERLIPIDEMIA, FM. HX, C.P., SOB, ABN EKG Procedure: PT REFUSED TO DO THE STRESS PORTION DUE TO SOB. SHE CANNOT LAY FLAT ON TABLE Cardiac Stress and Resting SPECT Images: Cardiac Stress and Resting SPECT images were obtained using technetium 99m Myoview mCi stress and 10.41 mCi at rest. Resting images show decreased perfusion in the anterolateral apical and anterior apical wall. Conclusion: 1. Only resting images are obtained as patient refused stress portion of the test due to shortness of breath cannot lay flat on the table. 2. Resting images show decreased tracer activity in the anterolateral, apical and anterior apical wall. 3. Abnormal resting myocardial perfusion imaging Electronically signed by : Alberto Jiménez, 12/01/2019 10:54:28
== END ==
PROVIDERS: PCP Family Medicine; Visit Provider Urology
DX: R07.9 Chest pain, unspecified (principal); R06.02 Shortness of breath; R94.31 Abnormal electrocardiogram [ECG] [EKG]; I25.10 Atherosclerotic heart disease of native coronary artery without angina pectoris; E11.9 Type 2 diabetes mellitus without complications; E78.49 Other hyperlipidemia; K21.9 Gastro-esophageal reflux disease without esophagitis; Z95.1 Presence of aortocoronary bypass graft
CPT/HCPCS: 78451; A9502

== ENCOUNTER → 2019-12-05 15:17 | Outpatient (CLI) | payer MEDICARE, MEDICAID, SELFPAY ==
--- NOTE | 2019-12-05 15:24 | XR_ITS ---
PROCEDURE: XR CERVICAL SPINE 5V CLINICAL INDICATION: DISORDER OF NECK,LT ARM PAIN Pain and numbness in left arm and shoulder COMPARISON: No exams were available for comparison FINDINGS: No obvious fracture or dislocation. There is mild multilevel cervical spondylosis. There is 4 mm anterolisthesis of C3 on C4 and 2 mm anterolisthesis of C4 on C5. There is degenerative disc disease from C2-T1 worse in the lower cervical spine at C5-C6 and C6-C7. There is mild foraminal narrowing on the left and right at C5-C6. There is mild upper thoracic curvature convex left. Patient's head is slightly tilted to the left. IMPRESSION: Cervical spondylosis as described above. No acute fracture Dictated by: Lenin Richey MD 12/05/2019 17:22 Lenin Richey MD in [place] 12/05/2019 17:22
== END ==
PROVIDERS: PCP Family Medicine; Visit Provider Family Medicine
DX: M53.82 Other specified dorsopathies, cervical region (principal); M79.602 Pain in left arm
CPT/HCPCS: 72050

== ENCOUNTER 2019-12-08 10:56 | Day surgery (SDC) | payer MEDICARE, MEDICAID, SELFPAY ==
[2019-12-08 11:18] VITALS: BP 133/88; PULSE 77; RESP 20; TEMP 36.1; O2SAT 94; BMI 33.5
--- NOTE | 2019-12-08 11:45 | HMH.PMPROC ---
- Procedure Date: 12/08/19 Time: 11:45 Anesthesiologist:: Eugene Marte MD Complications:: None Pre-procedure Diagnosis:: Degenerative disc disease of lumbar spine with lumbar spondylosis and lumbar facet arthropathy Post-procedure Diagnosis:: Same Indications for Procedure:: This patient is a pleasant 79-year-old white female who we are treating for low back pain with lumbar spondylosis and lumbar facet arthropathy. She is done very well with medial branch blocks in the past he also did very well with her lumbar RFA of the facet joints of L4-5 and L5-S1 on the left side. She is 70 to 80% better. She presents for RF ablation to the facet joints of L4-5 and L5-S1 on the right side today. Procedure Details:: Lumbar RFA informed consent was obtained and the risk and benefits of the procedure was explained to the patient. Patient was placed prone on the procedure table. The patient was prepped and draped in sterile fashion. C-arm fluoroscopy was used to view the lumbar spine. The skin and subcutaneous tissues were anesthetized using lidocaine. I placed 20-gauge RF needles into the facet joints of 4 5 and L5-S1 levels on the right side. We underwent sensory stimulation. There is good sensory stimulation at 0.8 V. We underwent motor stimulation. There is no motor stimulation at 2 V. We then anesthetized these levels with lidocaine and Depo-Medrol. I used a total of 40 mg Depo-Medrol for both levels. I then burned both levels of L4-5 and L5-S1 facet joint/medial branches on the right side for 4 minutes at 80 ?C. Patient tolerated the procedure well with no complication. Plan and Disposition:: We will follow-up with her in 2 weeks. Will reevaluate symptoms at that time.
[2019-12-08 11:47] VITALS: BP 135/85; PULSE 85; RESP 18; O2SAT 98
[2019-12-08 11:51] VITALS: BP 135/85; PULSE 85; RESP 18; O2SAT 98
[2019-12-08 12:15] VITALS: BP 112/65; PULSE 68; RESP 20; O2SAT 95
== END 2019-12-08 12:16 | disposition home or self-care (01) ==
LOC: SC.PAINP 10:58
PROVIDERS: PCP Family Medicine; Visit Provider Anesthesiology
DX: M51.36 Other intervertebral disc degeneration, lumbar region (principal); M47.816 Spondylosis without myelopathy or radiculopathy, lumbar region; M12.88 Other specific arthropathies, not elsewhere classified, other specified site; I25.10 Atherosclerotic heart disease of native coronary artery without angina pectoris; E78.5 Hyperlipidemia, unspecified; K21.9 Gastro-esophageal reflux disease without esophagitis; F41.9 Anxiety disorder, unspecified; F32.9 Major depressive disorder, single episode, unspecified; Z95.1 Presence of aortocoronary bypass graft
CPT/HCPCS: 64635; 64636; J1040

== ENCOUNTER → 2019-12-28 09:28 | Outpatient (POV) | payer MEDICARE, MEDICAID, SELFPAY ==
[2019-12-28 09:34] VITALS: BP 142/74; PULSE 85; RESP 18; O2SAT 98; BMI 38.0
--- NOTE | 2019-12-28 10:53 | HMH.PAINSOAP ---
[facility] Pain Management SOAP Note Subjective:: Patient is a pleasant 79-year-old white female who presents today for follow-up. She has been treated for chronic low back pain with lumbar spondylosis and lumbar facet arthropathy. She is following up after lumbar RFA. Patient reports that she got approximately 80% relief of her low back pain. She says that she is continued to get relief to her low back following the RFA. She is complaining today, however, of left hip pain. The pain does radiate into her left lateral thigh. The pain is worse with standing and walking. She does reposition often with sitting. Patient says that she does not have any pain to the right side. She does continue with physical therapy and a continued home stretching program. She also uses ice and heat therapies. Patient would like to undergo a left intra-articular hip injection. Rate her pain an 8 out of 10 to the left hip and left outer thigh. Review of Systems General: No recent weight changes, no fever, no sleep disturbances Respiratory: No cough, no shortness of air, no recurring pulmonary infections Cardiovascular/peripheral vascular: No chest pain, no palpitations, no edema, no shortness of breath Gastrointestinal: No new onset incontinence, normal bowel movements reported Genitourinary: No new onset incontinence Musculoskeletal: Left hip pain, left lateral thigh pain Psychiatric: Normal mood/affect Neurological: [Denies weakness in extremities], [denies balance issues] Objective:: Physical exam General: Alert and oriented x3, no acute distress, pleasant and cooperative, [on room air] Lungs: Respirations even and unlabored, symmetrical chest expansion Eyes: PERRL Musculoskeletal: Flexion and extension of left lower extremity somewhat guarded secondary to pain, deep tendon reflexes normal, strength in upper and lower extremities [5/5], slightly antalgic gait noted Neurological: Speech clear, beauty culturist apprentice equal, no gross sensory deficit Assessment:: Degenerative disc disease lumbar spine with lumbar spondylosis and lumbar facet arthropathy, left hip pain Plan:: We will schedule the patient for a left intra-articular hip injection. We will plan to see her back in the clinic after her injection to reassess her symptoms. The patient has been instructed to contact the clinic if she has any concerns before her next appointment. The patient and I specifically discussed risk factors for COVID19. These risks include, but are not limited to age greater than 60, heart or lung disease, diabetes, immunosuppression, and travel. We also discussed NSAIDs may worsen COVID19 infection or symptoms. Patient should not use NSAIDs to treat COVID19 signs or symptoms. Patient was also informed that any type of corticosteroid of any form (oral or injection) will decrease the patient's immune system response and may increase the likelihood of COVID19 [address] Marte has reviewed this note and agrees with this plan of care. This note was dictated using voice recognition software and make contain errors or omissions. [facility] History I have reviewed the patient's past medical history: Yes Medical History: Reports:: Coronary Artery Disease, Diabetes Mellitus Type 2, Hyperlipidemia, Hypertension Denies:: Cancer, Diabetes Mellitus Type 1, MRSA, Seizures *Have you ever received a pneumonia vaccine?: Yes *Have you received a flu vaccine this season?: Yes Other Medical History: Reports: Arthritis. Denies: Blood Transfusion Reaction Laterality Cases: Left: Arthroscopy Shoulder Other Surgeries: Yes: CABG, Cholecystectomy, Hysterectomy-Total, Other (lumpectomy (thigh)) Amputation: No Fractures: No - *Social History Smoking Status: Never smoker Alcohol Intake: never Alcohol Intake Frequency:: other Substance Use Type: denies use *Occupational Status:: other Housing: house *Travel in the last 8 weeks: None Family Hx:: Coronary Artery Disease
== END ==
PROVIDERS: PCP Family Medicine; Visit Provider Clinical Nurse Specialist Family Health
DX: M51.36 Other intervertebral disc degeneration, lumbar region (principal); M47.816 Spondylosis without myelopathy or radiculopathy, lumbar region; M12.88 Other specific arthropathies, not elsewhere classified, other specified site; M25.552 Pain in left hip
CPT/HCPCS: 99212

== ENCOUNTER 2020-01-05 11:05 | Day surgery (SDC) | payer MEDICARE, MEDICAID, SELFPAY ==
[2020-01-05 11:52] VITALS: BP 112/54; PULSE 82; RESP 18; TEMP 36.7; O2SAT 96; BMI 38.0
[2020-01-05 12:20] VITALS: BP 133/74; PULSE 85
[2020-01-05 12:21] VITALS: BP 133/76; PULSE 85; RESP 18; O2SAT 98
--- NOTE | 2020-01-05 12:22 | P.PCN_ITS ---
- Procedure Date: 01/05/20 Time: 12:22 Anesthesiologist:: Eugene Marte MD Complications:: None Pre-procedure Diagnosis:: Left hip degenerative osteoarthritis with increasing left hip pain Post-procedure Diagnosis:: Same Indications for Procedure:: This patient is a pleasant 79-year-old white female who we have been treating for low back pain with lumbar spondylosis and lumbar facet arthropathy. She is 80% better after lumbar RFA. She now has some residual left hip pain. Her pain is worse while walking. She does have degenerative osteoarthritis of her left hip. We will do a left hip intra-articular injection today. Procedure Details:: Left hip intra-articular injection Informed consent was obtained and the risk and benefits of the procedure was ex plained to the patient. Patient was taken the procedure room. Left hip was prepped using ChloraPrep. A 22-gauge spinal needle was inserted and advanced into the left hip joint. We injected 5 mL bupivacaine 0.25% and Depo-Medrol 40 mg into the left hip joint. The patient tolerated the procedure well with no complications. Plan and Disposition:: We will follow-up with her in 2 weeks. Will reevaluate symptoms at that time.
[2020-01-05 12:35] VITALS: BP 110/55; PULSE 79; RESP 18; O2SAT 96
== END 2020-01-05 12:35 | disposition home or self-care (01) ==
LOC: SC.PAINP 11:07
PROVIDERS: PCP Family Medicine; Visit Provider Anesthesiology
DX: M12.88 Other specific arthropathies, not elsewhere classified, other specified site (principal); M16.12 Unilateral primary osteoarthritis, left hip; M47.816 Spondylosis without myelopathy or radiculopathy, lumbar region; I10 Essential (primary) hypertension; E11.9 Type 2 diabetes mellitus without complications; K21.9 Gastro-esophageal reflux disease without esophagitis; I25.10 Atherosclerotic heart disease of native coronary artery without angina pectoris; F41.9 Anxiety disorder, unspecified; F32.9 Major depressive disorder, single episode, unspecified; Z95.1 Presence of aortocoronary bypass graft; E78.5 Hyperlipidemia, unspecified; Z79.899 Other long term (current) drug therapy
CPT/HCPCS: 20610; J1040; Q9966

== ENCOUNTER → 2020-02-12 12:56 | Outpatient (CLI) | payer MEDICARE, MEDICAID, SELFPAY ==
--- NOTE | 2020-02-12 12:59 | CT_ITS ---
PROCEDURE: CT HEAD/BRAIN WO/W CON CLINICAL INDICATION: FREQUENT FALLS COMPARISON: CT CT HEAD/BRAIN WO CON from 04/19/2019 TECHNIQUE: IV Contrast: 100ML Isovue 370 Axial images obtained. All CT scans at the facility use one or more dose reduction, viz: automated exposure control, ma/kV adjustment per patient size (including targeted exams where dose is matched to indication, i.e. head), or iterative reconstruction technique. FINDINGS: No midline shift, mass effect, intracranial hemorrhage, hydrocephalus, or extra-axial fluid collection is evident. No enhancing lesions are evident. There is generalized atrophy with hypoattenuation of the periventricular white matter consistent with microangiopathic changes. The calvarium has an unremarkable appearance. No mastoid effusion. No sinus air-fluid level IMPRESSION: No acute intracranial findings Dictated by: Lenin Richey MD 02/12/2020 16:10 Lenin Richey MD in [place] 02/12/2020 16:10
--- NOTE | 2020-02-12 13:23 | CA_ITS ---
APPROVED REPORT Researcher: Kelsey Cruz RVT Laterality: Bilateral Study Quality: Good Indications: FREQ FALLS,GAIT ABNORMALITIES Risk Factors Hypertension: Doppler Spectral Velocity Analysis ECA (R) 101.10/13.70 cm/s ECA (L) 84.00/9.40 cm/s dICA (R) 72.00/24.80 cm/s dICA (L) 79.70/26.60 cm/s James (R) 59.10/23.10 cm/s James (L) 69.40/15.40 cm/s pICA (R) 56.50/14.60 cm/s pICA (L) 93.40/27.40 cm/s dCCA (R) 50.60/9.40 cm/s dCCA (L) 65.10/12.00 cm/s pCCA (R) 79.10/15.00 cm/s pCCA (L) 77.10/17.10 cm/s Vert (R) 48.80/12.90 cm/s Vert (L) 68.50/15.40 cm/s ICA/CCA 1.42 ICA/CCA 1.43 Findings Study suggests less than 20% stenosis of the right internal cartoid artery. Study suggests 20-49% (lower end of scale) stenosis of the left internal cartoid artery. Antegrade flow seen bilateral vertebral arteries. Conclusion Study suggests less than 20% stenosis of the right internal cartoid artery. Study suggests 20-49% (lower end of scale) stenosis of the left internal cartoid artery. Antegrade flow seen bilateral vertebral arteries. Electronically signed by : Lenin Richey MD 02/12/2020 17:01:35
== END ==
PROVIDERS: PCP Family Medicine; Visit Provider Nurse Practitioner Family
DX: R26.9 Unspecified abnormalities of gait and mobility (principal); R09.89 Other specified symptoms and signs involving the circulatory and respiratory systems
CPT/HCPCS: 70470; 93880; Q9967

== ENCOUNTER → 2020-03-25 09:15 | Outpatient (POV) | payer MEDICARE, MEDICAID, SELFPAY ==
[2020-03-25 09:35] VITALS: BP 145/64; PULSE 79; RESP 18; TEMP 36.8; O2SAT 99; BMI 39.0
--- NOTE | 2020-03-25 09:55 | P.CONS_ITS ---
[facility] Pain Management SOAP Note Subjective:: 79-year-old white female who presents today for follow-up and medication refills. Patient currently rates her pain a 4 out of 10. She is on [place] 5 mg 1 p.o. twice daily. Patient is being treated for back pain. Patient's Yahir #[id number] reviewed and appropriate drug screens have been appropriate. Patient states she has been falling quite a bit recently. Patient and I discussed potential neurology consultation her updated imaging at this time she is doing physical therapy she would like to complete this prior to making any additional changes. She denies side effects from medication and states that it helps up to 80%. ROS General: no recent weight change, no fever, no sleep disturbances Respiratory: no cough, no shortness of air, no recurring pulmonary infections Cardiovascular/Peripheral Vascular: No chest pain, No palpitations, no edema, no shortness of breath. Gastrointestinal: no new onset incontinence, normal bowel movements reported Genitourinary: no new onset incontinence Musculoskeletal: Back pain, leg pain Psychiatric: normal mood/ affect Neurological: [denies new onset weakness in extremities], recent fall Objective:: Physical Exam General: Alert and oriented x3, no acute distress, pleasant and cooperative, [on room air] Lungs: Resps E/U, Symmetrical chest expansion, Eyes: PERRL Musculoskeletal: Flexion and extension of lumbar spine somewhat guarded secondary to pain, deep tendon reflexes normal, strength in upper and lower extremities [5/5], [abnormal gait noted] Neurological: speech clear, thread cutter equal, no gross sensory deficits Assessment:: Degenerative disc disease lumbar spine lumbar radiculopathy, back pain Plan:: Patient is to finish her physical therapy will continue her [place] 5 mg 1 p.o. twice daily. She has been instructed to call the office if she has any issues prior to next appointment. We will see her back in 3 months reassess her symptoms at that time. If she has any worsening symptomology she is to call the office. Dr. Marte has reviewed this note and agrees with this plan of care. This note was dictated using voice recognition software and may contain errors or omissions [facility] History I have reviewed the patient's past medical history: Yes Medical History: Reports:: Coronary Artery Disease, Diabetes Mellitus Type 2, Hyperlipidemia, Hypertension Denies:: Cancer, Diabetes Mellitus Type 1, MRSA, Seizures *Have you ever received a pneumonia vaccine?: Yes *Have you received a flu vaccine this season?: Yes Other Medical History: Reports: Arthritis. Denies: Blood Transfusion Reaction Laterality Cases: Left: Arthroscopy Shoulder Other Surgeries: Yes: CABG, Cholecystectomy, Colonoscopy, Hysterectomy-Total, Other (lumpectomy (thigh)) Amputation: No Fractures: No - *Social History Smoking Status: Never smoker Alcohol Intake: never Alcohol Intake Frequency:: other Substance Use Type: denies use *Occupational Status:: other Housing: house *Travel in the last 8 weeks: None Family Hx:: Coronary Artery Disease
== END ==
PROVIDERS: PCP Family Medicine; Visit Provider Clinical Nurse Specialist Family Health
DX: M51.16 Intervertebral disc disorders with radiculopathy, lumbar region (principal)
CPT/HCPCS: 99212; G0463

== ENCOUNTER → 2020-05-30 10:34 | Outpatient (POV) | payer MEDICARE, MEDICAID, SELFPAY ==
--- NOTE | 2020-05-30 11:43 | HMH.PAINSOAP ---
[facility] Pain Management SOAP Note Subjective:: She is a pleasant 80-year-old white female who presents today for follow-up. Patient had a radiofrequency ablation L4-L5 L5-S1 bilaterally back in November and is done extremely well. Until just recently. She has had over 80% relief for over 5 months. She would like to repeat her neurotomy given the efficacy. She rates her pain today an 8 out of 10 mostly in her lower back. She has difficulty with rotating movements. Is very focal pain. She is positive lumbar facet loading. ROS General: no recent weight change, no fever, no sleep disturbances Respiratory: no cough, no shortness of air, no recurring pulmonary infections Cardiovascular/Peripheral Vascular: No chest pain, No palpitations, no edema, no shortness of breath. Gastrointestinal: no new onset incontinence, normal bowel movements reported Genitourinary: no new onset incontinence Musculoskeletal: Back pain Psychiatric: normal mood/ affect Neurological: [denies new onset weakness in extremities], [denies new onset balance issues] Objective:: Physical Exam General: Alert and oriented x3, no acute distress, pleasant and cooperative, [on room air] Lungs: Resps E/U, Symmetrical chest expansion, Eyes: PERRL Musculoskeletal: Flexion and extension of lumbar spine somewhat guarded secondary to pain, deep tendon reflexes normal, strength in upper and lower extremities [5/5], [abnormal gait noted] Neurological: speech clear, 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 Dr. Marte has reviewed this note and agrees with this plan of care. This note was dictated using voice recognition software and may contain errors or omissions [facility] History I have reviewed the patient's past medical history: Yes Medical History: Reports:: Coronary Artery Disease, Diabetes Mellitus Type 2, Hyperlipidemia, Hypertension Denies:: Cancer, Diabetes Mellitus Type 1, MRSA, Seizures *Have you ever received a pneumonia vaccine?: Yes *Have you received a flu vaccine this season?: Yes Other Medical History: Reports: Arthritis. Denies: Blood Transfusion Reaction Laterality Cases: Left: Arthroscopy Shoulder Other Surgeries: Yes: CABG, Cholecystectomy, Colonoscopy, Hysterectomy-Total, Other (lumpectomy (thigh)) Amputation: No Fractures: No - *Social History Smoking Status: Never smoker Alcohol Intake: never Alcohol Intake Frequency:: other Substance Use Type: denies use *Occupational Status:: other Housing: house *Travel in the last 8 weeks: None Family Hx:: Coronary Artery Disease
[2020-05-30 12:33] VITALS: BP 136/71; PULSE 76; RESP 18; O2SAT 98; BMI 39.0
== END ==
PROVIDERS: PCP Family Medicine; Visit Provider Clinical Nurse Specialist Family Health
DX: M51.16 Intervertebral disc disorders with radiculopathy, lumbar region (principal); M54.06 Panniculitis affecting regions of neck and back, lumbar region
CPT/HCPCS: 99212; G0463

== ENCOUNTER → 2020-08-12 09:06 | Outpatient (POV) | payer MEDICARE, MEDICAID, SELFPAY ==
[2020-08-12 09:12] VITALS: BP 140/72; PULSE 74; RESP 18; O2SAT 98; BMI 37.0
--- NOTE | 2020-08-12 09:21 | HMH.PAINSOAP ---
[facility] Pain Management SOAP Note Subjective:: Patient is a 80-year-old white female who presents today for medication refill and for follow-up. The patient is being treated for degenerative disc disease lumbar spine with lumbar facet arthropathy and spondylosis. She does have chronic back pain. Her pain is worse with bending forward and with extension at her waist. Her pain is a 5 out of 10 today. She will undergo drug screen today. She is also managed with oral medications of [place] 5 mg 1 tablet p.o. twice daily. She denies any side effects to the medication. She does need a refill on this today. I have discussed with the patient that the policy per the clinic is changed and we will be doing 1 month follow-ups for medications from this day forward. She is in agreement. She was scheduled for an RFA bilaterally at L4-L5 L5-S1, however, was unable to make that appointment because she was out of town with her daughter. She would like to undergo this injection. She has had the injections in the past and says she gets about 70 to 80% relief for 3 to 4 months. Patient is on Xarelto and has been approved to hold that in the past. Review of Systems General: No recent weight changes, no fever, no sleep disturbances Respiratory: No cough, no shortness of air, no recurring pulmonary infections Cardiovascular/peripheral vascular: No chest pain, no palpitations, no edema, no shortness of breath Gastrointestinal: No new onset incontinence, normal bowel movements reported Genitourinary: No new onset incontinence Musculoskeletal: Low back pain worse with bending forward and extension at waist Psychiatric: Normal mood/affect Neurological: [Denies weakness in extremities], [denies balance issues] Objective:: Physical exam General: Alert and oriented x3, no acute distress, pleasant and cooperative, [on room air] Lungs: Respirations even and unlabored, symmetrical chest expansion Eyes: PERRL Musculoskeletal: Flexion and extension of [] lumbar spine somewhat guarded secondary to pain, deep tendon reflexes normal, strength in upper and lower extremities [5/5], [abnormal gait noted], positive Kemps test Neurological: Speech clear, 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 We will schedule her for an RFA at L4-L5 L5-S1 bilaterally. She is unable to take anti-inflammatories due to Xarelto use. She will continue with a home stretching program. She has had physical therapy in the past for greater than 6 weeks and did not get any significant relief. She will get a refill on her [place] 5 mg 1 tablet p.o. twice daily. We will see her back in the clinic after her injections to reevaluate her symptoms. She has been advised to hold her Xarelto. Risks and benefits of the procedure have been explained to the patient. Patient would like to proceed with the procedure. Patient has been prescribed a controlled substance after being counseled on the medication, medication safety, and possible side effects. CARRIE report has been obtained and reviewed prior to prescription and found to be appropriate. Opioid contract was reviewed and signed by the patient, and that they have agreed to all of the terms set forth by our compliance program. Patient has been instructed to contact the clinic with any concerns before the next appointment. Dr. Marie has reviewed this note and agrees with this plan of care. This note was dictated using voice recognition software and make contain errors or omissions. [facility] History I have reviewed the patient's past medical history: Yes Medical History: Reports:: Coronary Artery Disease, Diabetes Mellitus Type 2, Hyperlipidemia, Hypertension Denies:: Cancer, Diabetes Mellitus Type 1, MRSA, Seizures *Have you david
== END ==
PROVIDERS: Visit Provider Clinical Nurse Specialist Family Health
DX: M51.36 Other intervertebral disc degeneration, lumbar region (principal); M47.816 Spondylosis without myelopathy or radiculopathy, lumbar region; M54.06 Panniculitis affecting regions of neck and back, lumbar region; G89.29 Other chronic pain
CPT/HCPCS: 99212; G0463

== ENCOUNTER 2020-08-23 09:47 | Day surgery (SDC) | payer MEDICARE, MEDICAID, SELFPAY ==
[2020-08-23 10:17] VITALS: BP 123/64; PULSE 81; RESP 20; TEMP 36.7; O2SAT 98; BMI 38.7
[2020-08-23 11:21] VITALS: BP 139/73; PULSE 72; RESP 18; O2SAT 90
[2020-08-23 11:24] VITALS: BP 146/65; PULSE 78; RESP 18; O2SAT 90
--- NOTE | 2020-08-23 11:47 | HMH.PMPROC ---
- Procedure Date: 08/23/20 Time: 11:47 Anesthesiologist:: Flaca Marie MD Complications:: None Pre-procedure Diagnosis:: Degenerative disease of the lumbar spine, lumbar facet arthropathy and spondylosis, chronic low back pain Post-procedure Diagnosis:: Same Indications for Procedure:: This patient is a very pleasant 80-year-old white female who presents today with chronic low back pain related to the above diagnosis. She reports that the pain is worse with bending and twisting. She has trialed other treatment including oral pain medication and home stretching program with minimal relief. She is currently taking [place] 5/325 mg 1 tablet p.o. twice daily. The plan for today is for her to undergo bilateral lumbar RFA at L4-L5 and L5-S1. Procedure Details:: Lumbar RFA Informed consent was obtained and the risk and benefits of the procedure was explained to the patient. Patient was placed prone on the procedure table. The patient was prepped and draped in sterile fashion. C-arm fluoroscopy was used to view the lumbar spine. The skin and subcutaneous tissues were anesthetized using lidocaine. I placed 20-gauge RF needles into the facet joints of [L4 and L5] levels on the left and right side. We underwent sensory stimulation. There is good sensory stimulation at 0.8 V. We underwent motor stimulation. There is no motor stimulation at 2 V. We then anesthetized these levels with lidocaine and Depo-Medrol. I used a total of 40 mg Depo-Medrol for both levels. I then burned both levels of L4 and L5 facet joint/medial branches on the left and right side for 60 seconds at 80?C. We underwent 4 kahn again each 1 for 60 seconds at 80?C. Patient tolerated the procedure well with no complication. Plan and Disposition:: Follow-up with this patient in 2 weeks. Will reevaluate pain symptoms at that time.
[2020-08-23 12:05] VITALS: BP 109/71; PULSE 72; RESP 20; O2SAT 98
== END 2020-08-23 12:05 | disposition home or self-care (01) ==
LOC: SC.PAINP 09:49
PROVIDERS: PCP Family Medicine; Visit Provider Anesthesiology Pain Medicine
DX: M51.36 Other intervertebral disc degeneration, lumbar region (principal); M54.06 Panniculitis affecting regions of neck and back, lumbar region; M47.816 Spondylosis without myelopathy or radiculopathy, lumbar region; G89.29 Other chronic pain; I25.10 Atherosclerotic heart disease of native coronary artery without angina pectoris; E78.5 Hyperlipidemia, unspecified; I10 Essential (primary) hypertension; M19.90 Unspecified osteoarthritis, unspecified site; E11.9 Type 2 diabetes mellitus without complications
CPT/HCPCS: 64635; 64636; J1030

== ENCOUNTER → 2020-09-09 09:40 | Outpatient (POV) | payer MEDICARE, MEDICAID, SELFPAY ==
[2020-09-09 09:48] VITALS: BP 131/73; PULSE 76; RESP 18; O2SAT 96; BMI 37.0
--- NOTE | 2020-09-09 10:25 | HMH.PAINSOAP ---
[facility] Pain Management SOAP Note Subjective:: Patient is an 80-year-old white female who presents today for follow-up. She is also here for medication refills today. Patient is being treated for degenerative disc disease lumbar spine with lumbar radiculopathy symptoms as well as lumbar facet arthropathy, lumbar spondylosis and chronic low back pain. Patient recently underwent an RFA at L4-L5 L5-S1 bilaterally. She reports that she got approximately 40% relief for about a week. She rates her pain an 8 out of 10. Patient's pain is worse when she is bending and twisting at her waist. She is also managed with oral medications. We do manage the patient with [place] 5 mg 1 tablet p.o. twice daily. She denies any side effects from medication. Her Carrie #[id number] has been reviewed and is appropriate. Morphine equivalent is 10. She is also managed with gabapentin by her primary care provider. Review of Systems General: No recent weight changes, no fever, no sleep disturbances Respiratory: No cough, no shortness of air, no recurring pulmonary infections Cardiovascular/peripheral vascular: No chest pain, no palpitations, no edema, no shortness of breath Gastrointestinal: No new onset incontinence, normal bowel movements reported Genitourinary: No new onset incontinence Musculoskeletal: Chronic low back pain worse with bending and twisting at waist Psychiatric: Normal mood/affect Neurological: [Denies weakness in extremities], [denies balance issues] Objective:: Physical exam General: Alert and oriented x3, no acute distress, pleasant and cooperative, room air Lungs: Respirations even and unlabored, symmetrical chest expansion Eyes: PERRL Musculoskeletal: Flexion and extension of lumbar spine somewhat guarded secondary to pain, deep tendon reflexes normal, strength in upper and lower extremities [5/5], [abnormal gait noted] Neurological: Speech clear, 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 twice daily. We will give the patient a month medication and plan to see her back in clinic in 1 month for reevaluation of symptoms. She has been instructed to contact the clinic if she has any concerns before her next appointment. Patient has been instructed to contact the clinic with any concerns before the next appointment. Dr. Marte has reviewed this note and agrees with this plan of care. This note was dictated using voice recognition software and make contain errors or omissions. Risks and benefits of the medication have been explained in detail to the patient. The patient has been advised to consult with his/her primary care provider and pharmacist regarding drug-drug interaction of medications currently prescribed. Patient has been prescribed a controlled substance after being counseled on the medication, medication safety, and possible side effects. CARRIE report has been obtained and reviewed prior to prescription and found to be appropriate. Opioid contract was reviewed and signed by the patient, and that they have agreed to all of the terms set forth by our compliance program. [facility] History I have reviewed the patient's past medical history: Yes Medical History: Reports:: Coronary Artery Disease, Diabetes Mellitus Type 2, Hyperlipidemia, Hypertension Denies:: Cancer, Diabetes Mellitus Type 1, MRSA, Seizures *Have you ever received a pneumonia vaccine?: Yes *Have you received a flu vaccine this season?: Yes Other Medical History: Reports: Arthritis. Denies: Blood Transfusion Reaction Laterality Cases: Left: Arthroscopy Shoulder Other Surgeries: Yes: CABG, Cardiac Catheterization, Cholecystectomy, Colonoscopy, Hysterectomy-Total, Other (lumpectomy (thigh)) Amputation: No Fractures: No - *Social History Smoking Status: Never smoker Alcohol Intake:
== END ==
PROVIDERS: PCP Family Medicine; Visit Provider Clinical Nurse Specialist Family Health
DX: M51.36 Other intervertebral disc degeneration, lumbar region (principal); M47.816 Spondylosis without myelopathy or radiculopathy, lumbar region; G89.29 Other chronic pain; I25.10 Atherosclerotic heart disease of native coronary artery without angina pectoris; E11.9 Type 2 diabetes mellitus without complications; E78.5 Hyperlipidemia, unspecified; I10 Essential (primary) hypertension; M19.90 Unspecified osteoarthritis, unspecified site; Z95.1 Presence of aortocoronary bypass graft
CPT/HCPCS: 99212; G0463

== ENCOUNTER → 2020-10-14 16:50 | Outpatient (CLI) | payer MEDICARE, MEDICAID, SELFPAY ==
[2020-10-14 18:36] LABS: Basophils # 0.1 K/mm3 (0-0.2); Basophils % 0.7 % (0.1-2.0); Eosinophils # 0.4 K/mm3 (0.0-0.4); Hematocrit 37.8 % (37.0-47.0); Hemoglobin 12.3 g/dL (12.2-16.2); Lymphocytes # 2.7 K/mm3 (0.7-4.5); Lymphocytes % 26.5 % (10-50); Mean Corpuscular HGB Conc 32.5 g/dL (31.8-35.4); Mean Corpuscular Hemoglobin 30.2 pg (27.0-31.2); Mean Platelet Volume 8.5 fl (7.4-10.4); Monocytes # 0.7 K/mm3 (0.1-1.0); Neutrophils # 6.3 K/mm3 (1.8-7.8); Neutrophils % 61.9 % (37.0-80.0); Platelet Count 348 K/mm3 (142-424); Red Blood Count 4.07 M/mm3 (4.20-5.40); Red Cell Distribution Width 14.2 % (11.5-17.5); White Blood Count 10.3 K/mm3 (4.8-10.8)
== END ==
PROVIDERS: PCP Family Medicine; Visit Provider Nurse Practitioner
DX: Z20.822 Contact with and (suspected) exposure to COVID-19 (principal)
CPT/HCPCS: 36415; 85025; U0003

== ENCOUNTER → 2020-10-17 11:02 | Outpatient (POV) | payer MEDICARE, MEDICAID, SELFPAY ==
--- NOTE | 2020-10-17 13:03 | HMH.VVPMSO ---
[facility] PM Virtual Visit SOAP Consent for virtual visit:: With the recent concerns about the COVID-19, we are trying to minimize exposure to you by shifting to telehealth appointments whenever possible. It restricts me from seeing you in person, but the trade off is protecting you during this pandemic. Can you see and hear me okay, and do you consent to this option? If not, I would be happy to see if we can reschedule your appointment in the future, when feasible. Has patient consented to this virtual visit?: Yes Subjective:: Patient is a pleasant 80-year-old white female who presents via telephone for follow-up. The patient is being treated for degenerative disc disease lumbar spine with lumbar radiculopathy symptoms. She is also treated for lumbar facet arthropathy lumbar spondylosis and chronic low back pain. Patient does undergo injective therapy within the clinic. She is unable to do a in person visit today due to an upper respiratory infection and secondary to comorbidities and concern for Covid. Patient's pain is a 5 out of 10 which is her baseline. She is managed in the clinic with [place] 5 mg 1 tablet p.o. twice daily Patient was unable to make her visit on 10/10/2020. As result, she does not have any medication. She says that she was unable to contact the clinic for refills at that time. She has not been taking the medication. Patient's Carrie #[id number] has been reviewed and is appropriate. Drug screen is appropriate. Morphine equivalent is 0. Review of Systems General: No recent weight changes, no fever, no sleep disturbances Respiratory: No cough, no shortness of air, upper respiratory infection Cardiovascular/peripheral vascular: No chest pain, no palpitations, no edema, no shortness of breath Gastrointestinal: No new onset incontinence, normal bowel movements reported Genitourinary: No new onset incontinence Musculoskeletal: Chronic low back pain Psychiatric: [Normal mood/affect] Neurological: [Denies weakness in extremities], [denies balance issues] Objective:: Physical exam General: Alert and oriented x3, no acute distress, pleasant and cooperative, Assessment:: Degenerative disc disease lumbar spine with lumbar radiculopathy symptoms Plan:: We will refill the patient's [place] 5 mg 1 tablet p.o. twice daily. We will give her a month medication and plan to see her back in clinic in 1 month for reevaluation of symptoms.. Risks and benefits of the medication have been explained in detail to the patient. The patient has been advised to consult with his/her primary care provider and pharmacist regarding drug-drug interaction of medications currently prescribed. Patient has been prescribed a controlled substance after being counseled on the medication, medication safety, and possible side effects. CARRIE report has been obtained and reviewed prior to prescription and found to be appropriate. Opioid contract was reviewed and signed by the patient, and that they have agreed to all of the terms set forth by our compliance program. Patient has been instructed to contact the clinic with any concerns before the next appointment. Dr. Marte has reviewed this note and agrees with this plan of care. This note was dictated using voice recognition software and make contain errors or omissions. Time In:: 12:00 Time Out:: 12:20 [facility] History Medical History: Reports:: Coronary Artery Disease, Diabetes Mellitus Type 2, Hyperlipidemia, Hypertension Denies:: Cancer, Diabetes Mellitus Type 1, MRSA, Seizures *Have you ever received a pneumonia vaccine?: Yes *Have you received a flu vaccine this season?: Yes Other Medical History: Reports: Arthritis. Denies: Blood Transfusion Reaction Laterality Cases: Left: Arthroscopy Shoulder Other Surgeries: Yes: CABG, Cardiac Catheterization, Cholecystectomy, Colonoscopy, Hysterectomy-Total, Other (lumpectomy (thigh)) Amputation: No Fractures: No - *Social History Smoking Status: Never
== END ==
PROVIDERS: Visit Provider Clinical Nurse Specialist Family Health
DX: M51.16 Intervertebral disc disorders with radiculopathy, lumbar region (principal)
CPT/HCPCS: 99212; G0463

== ENCOUNTER → 2020-11-14 10:48 | Outpatient (POV) | payer MEDICARE, MEDICAID, SELFPAY ==
[2020-11-14 10:58] VITALS: BP 111/60; PULSE 77; RESP 18; O2SAT 95; BMI 36.1
[2020-11-14 11:52] LABS: Phencyclidine Screen,Urine Negative ng/ml (<25)
[2020-11-14 11:53] LABS: Opiate Screen,Urine Positive ng/ml (<300)
[2020-11-14 11:54] LABS: Amphetamine/Metha Screen,Urine Negative ng/ml (<1000)
[2020-11-14 11:55] LABS: Barbiturates Screen,Urine Negative ng/ml (<200); Benzodiazepines Screen,Urine Negative ng/ml (<200)
[2020-11-14 11:56] LABS: Cannabinoid Screen,Urine Negative ng/ml (<50); Cocaine Screen,Urine Negative ng/ml (<300)
[2020-11-14 11:57] LABS: Methadone Screen,Urine Negative ng/ml (<300)
--- NOTE | 2020-11-14 12:22 | HMH.VVPMSO ---
[facility] PM Virtual Visit SOAP Consent for virtual visit:: With the recent concerns about the COVID-19, we are trying to minimize exposure to you by shifting to telehealth appointments whenever possible. It restricts me from seeing you in person, but the trade off is protecting you during this pandemic. Can you see and hear me okay, and do you consent to this option? If not, I would be happy to see if we can reschedule your appointment in the future, when feasible. Has patient consented to this virtual visit?: Yes Subjective:: Patient is an 80-year-old white female who presents via phone visit today. Patient and I did discuss her previous visit during a telephone follow-up to prevent the patient from exposure to Covid. Patient is advanced in age with multiple comorbidities. She was in agreement. 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 She is managed in the clinic with Tavernier 5 mg 1 tablet p.o. twice daily. Patient's pain is a 7 out of 10 today. The medicine is working well for her at this time. She denies any side effects. The patient's Carrie and drug screen are appropriate. Review of Systems General: No recent weight changes, no fever, no sleep disturbances Respiratory: No cough, no shortness of air, no recurring pulmonary infections Cardiovascular/peripheral vascular: No chest pain, no palpitations, no edema, no shortness of breath Gastrointestinal: No new onset incontinence, normal bowel movements reported Genitourinary: No new onset incontinence Musculoskeletal: Chronic low back pain worse with standing or walking Psychiatric: [Normal mood/affect] Neurological: [Denies weakness in extremities], [denies balance issues] Objective:: Physical exam General: Alert and oriented x3, pleasant Assessment:: Degenerative disc disease lumbar spine with lumbar radicular symptoms, lumbar facet arthropathy and lumbar spondylosis Plan:: We will continue the patient on Tavernier 5 mg 1 tablet p.o. twice daily. We will give her a month medication plan to follow-up with her in 1 month. Risks and benefits of the medication have been explained in detail to the patient. The patient has been advised to consult with his/her primary care provider and pharmacist regarding drug-drug interaction of medications currently prescribed. Patient has been prescribed a controlled substance after being counseled on the medication, medication safety, and possible side effects. CARRIE report has been obtained and reviewed prior to prescription and found to be appropriate. Opioid contract was reviewed and signed by the patient, and that they have agreed to all of the terms set forth by our compliance program. Patient has been instructed to contact the clinic with any concerns before the next appointment. Dr. Marte has reviewed this note and agrees with this plan of care. This note was dictated using voice recognition software and make contain errors or omissions. Time In:: 11:00 Time Out:: 11:10 [facility] History I have reviewed the patient's past medical history: Yes Medical History: Reports:: Coronary Artery Disease, Diabetes Mellitus Type 2, Hyperlipidemia, Hypertension Denies:: Cancer, Diabetes Mellitus Type 1, MRSA, Seizures *Have you ever received a pneumonia vaccine?: Yes *Have you received a flu vaccine this season?: No Other Medical History: Reports: Arthritis. Denies: Blood Transfusion Reaction Laterality Cases: Left: Arthroscopy Shoulder Other Surgeries: Yes: CABG, Cardiac Catheterization, Cholecystectomy, Colonoscopy, Hysterectomy-Total, Other (lumpectomy (thigh)) Amputation: No Fractures: No - *Social History Smoking Status: Never smoker Alcohol Intake: never Alcohol Intake Frequency:: other Substance Use Type: denies use *Occupational Status:: unemployed Housing: house *Travel in the last 8 weeks: None Family Hx:: Coronary Artery Disease
--- NOTE | 2020-11-14 12:54 | HMH.PAINSOAP ---
[facility] Pain Management SOAP Note Subjective:: Patient is an 80-year-old white female who presents today for follow-up and medication refill. 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 She is managed in the clinic with [place] 5 mg 1 tablet p.o. twice daily. Patient's pain is a 7 out of 10 today. The medicine is working well for her at this time. She denies any side effects. The patient's Carrie and drug screen are appropriate. Review of Systems General: No recent weight changes, no fever, no sleep disturbances Respiratory: No cough, no shortness of air, no recurring pulmonary infections Cardiovascular/peripheral vascular: No chest pain, no palpitations, no edema, no shortness of breath Gastrointestinal: No new onset incontinence, normal bowel movements reported Genitourinary: No new onset incontinence Musculoskeletal: Chronic low back pain worse with standing or walking Psychiatric: [Normal mood/affect] Neurological: [Denies weakness in extremities], [denies balance issues] Objective:: Physical exam General: Alert and oriented x3, no acute distress, pleasant and cooperative, [on room air] Lungs: Respirations even and unlabored, symmetrical chest expansion Eyes: PERRL Musculoskeletal: Flexion and extension of lumbar [spine] somewhat guarded secondary to pain, strength in upper and lower extremities [5/5], [antalgic gait noted] Neurological: Speech clear, [internet merchant equal], no gross sensory deficit Assessment:: Degenerative disc disease lumbar spine with lumbar radicular symptoms, lumbar facet arthropathy and lumbar spondylosis Plan:: We will continue the patient on [place] 5 mg 1 tablet p.o. twice daily. We will give her a month medication plan to follow-up with her in 1 month. Risks and benefits of the medication have been explained in detail to the patient. The patient has been advised to consult with his/her primary care provider and pharmacist regarding drug-drug interaction of medications currently prescribed. Patient has been prescribed a controlled substance after being counseled on the medication, medication safety, and possible side effects. CARRIE report has been obtained and reviewed prior to prescription and found to be appropriate. Opioid contract was reviewed and signed by the patient, and that they have agreed to all of the terms set forth by our compliance program. Patient has been instructed to contact the clinic with any concerns before the next appointment. Dr. Marte has reviewed this note and agrees with this plan of care. This note was dictated using voice recognition software and make contain errors or omissions. [facility] History I have reviewed the patient's past medical history: Yes Medical History: Reports:: Coronary Artery Disease, Diabetes Mellitus Type 2, Hyperlipidemia, Hypertension Denies:: Cancer, Diabetes Mellitus Type 1, MRSA, Seizures *Have you ever received a pneumonia vaccine?: Yes *Have you received a flu vaccine this season?: No Other Medical History: Reports: Arthritis. Denies: Blood Transfusion Reaction Laterality Cases: Left: Arthroscopy Shoulder Other Surgeries: Yes: CABG, Cardiac Catheterization, Cholecystectomy, Colonoscopy, Hysterectomy-Total, Other (lumpectomy (thigh)) Amputation: No Fractures: No - *Social History Smoking Status: Never smoker Alcohol Intake: never Alcohol Intake Frequency:: other Substance Use Type: denies use *Occupational Status:: unemployed Housing: house *Travel in the last 8 weeks: None Family Hx:: Coronary Artery Disease
== END ==
PROVIDERS: Visit Provider Clinical Nurse Specialist Family Health
DX: M51.16 Intervertebral disc disorders with radiculopathy, lumbar region (principal); M47.896 Other spondylosis, lumbar region; M54.06 Panniculitis affecting regions of neck and back, lumbar region
CPT/HCPCS: 80305; 99212; G0463

== ENCOUNTER → 2021-06-30 09:13 | Outpatient (CLI) | payer MEDICARE, MEDICAID, SELFPAY ==
--- NOTE | 2021-06-30 09:21 | XR_ITS ---
FINAL REPORT CLINICAL HISTORY: COUGH..open heart surgery FINDINGS: Two views of the chest were obtained. The heart size is within normal limits. There are postoperative changes from median sternotomy. The mediastinum is normal. There is bronchial wall thickening consistent with bronchitis. There is mild atelectasis. There is no pneumothorax. There are postoperative changes from left shoulder arthroplasty. There are moderate degenerative changes of the thoracic spine. IMPRESSION: Bronchitis. Reviewed, Interpreted and Dictated by Quoc Garcia III, MD Transcribed by Lester Field Authenticated by Quoc Garcia III, MD on 06/30/2021 11:48:08 AM [facility]
== END ==
PROVIDERS: PCP Nurse Practitioner; Visit Provider Nurse Practitioner
DX: R05.9 Cough, unspecified (principal)
CPT/HCPCS: 71046

== ENCOUNTER 2023-08-10 09:18 | Outpatient (CLI) | payer MEDICARE, MEDICAID, SELFPAY ==
[2023-08-10 18:20] LABS: Basophils # 0.1 K/mm3 (0-0.2); Basophils % 0.9 % (0.1-2.0); Eosinophils # 0.4 K/mm3 (0.0-0.4); Eosinophils % 4.4 % (0.1-12.0); Hematocrit 39.1 % (37.0-47.0); Hemoglobin 12.4 g/dL (12.2-16.2); Lymphocytes # 2.2 K/mm3 (0.7-4.5); Lymphocytes % 28.2 % (10-50); Mean Corpuscular HGB Conc 31.8 g/dL (31.8-35.4); Mean Corpuscular Hemoglobin 30.4 pg (27.0-31.2); Mean Corpuscular Volume 95.4 fl (81-99); Mean Platelet Volume 8.5 fl (7.4-10.4); Monocytes # 0.7 K/mm3 (0.1-1.0); Monocytes % 8.2 % (1.7-9.3); Neutrophils # 4.6 K/mm3 (1.8-7.8); Neutrophils % 58.5 % (37.0-80.0); Platelet Count 394 K/mm3 (142-424); Red Cell Distribution Width 14.1 % (11.5-17.5); White Blood Count 7.9 K/mm3 (4.8-10.8)
[2023-08-10 18:38] LABS: Creatinine,Urine Random 70 mg/dL (Not Estab.)
[2023-08-10 18:42] LABS: Alanine Aminotransferase 14 U/L (12-78); Albumin/Globulin Ratio 1.3 (1.1-1.8); Alkaline Phosphatase 53 U/L (38-126); Anion Gap 11.5 mEq/L (5-15); Aspartate Amino Transferase 24 U/L (14-36); Bilirubin,Total 0.3 mg/dl (0.2-1.3); Blood Urea Nitrogen 24 mg/dl (7-17); Calcium 10.1 mg/dl (8.4-10.2); Carbon Dioxide 32 mmol/L (22.0-30.0); Chloride 102 mmol/L (98-107); Chol/HDL Ratio 2.9 (1-3.5); Cholesterol 166 mg/dl (140-200); Estimated Glomerular Filt Rate 68 ml/min (>60); GFR (African American) 82 ML/MIN (>60); Globulin 3.2 g/dL (1.3-3.2); Glucose 84 mg/dl (74-100); HDL Cholesterol 57 mg/dl (40-60); Microalbumin < 6.000 mg/L (0-16.7); Potassium 4.5 mmoL/L (3.5-5.1); Sodium 141 mmol/L (136-145); Total Protein,Serum 7.2 g/dl (6.3-8.2); Triglycerides 120 mg/dl (30-150); VLDL Cholesterol 24 mg/dL (0-40)
[2023-08-10 18:51] LABS: Creatine Kinase MB 1.1 ng/ml (0.0-2.03)
[2023-08-10 18:53] LABS: Direct LDL Cholesterol 77.55 mg/dL (100-129)
[2023-08-10 19:13] LABS: Thyroid Stimulating Hormone 1.95 uIU/mL (0.465-4.68)
[2023-08-10 19:25] LABS: Hemoglobin A1C 5.5 % (4.0-6.0)
[2023-08-10 20:37] LABS: Vitamin B12 487 pg/mL (239-931)
== END 2023-08-10 23:59 | disposition home or self-care (01) ==
LOC: LAB.DROPOF 08-11 09:18
PROVIDERS: PCP Nurse Practitioner; Visit Provider Nurse Practitioner
DX: E11.9 Type 2 diabetes mellitus without complications (principal); I11.9 Hypertensive heart disease without heart failure; I25.10 Atherosclerotic heart disease of native coronary artery without angina pectoris; K21.9 Gastro-esophageal reflux disease without esophagitis; M79.10 Myalgia, unspecified site; Z79.84 Long term (current) use of oral hypoglycemic drugs; E78.49 Other hyperlipidemia
CPT/HCPCS: 80050; 80053; 80061; 82043; 82553; 82570; 82607; 83036; 84443; 85025

== ENCOUNTER 2023-11-16 08:00 | Day surgery (SDC) | payer MEDICARE, MEDICAID, SELFPAY ==
[2023-11-16] VITALS (9 sets, daily range): BP systolic 111–141; BP diastolic 65–87; PULSE 72–86; RESP 16–22; TEMP 36.8–36.9; O2SAT 89–100; BMI 34.5
--- NOTE | 2023-11-16 07:02 | IR_ITS ---
APPROVED REPORT Patient Location: Outpatient [place] Operator: HAYES Sanders RT (R) PROCEDURES Left heart catheterization Left ventriculogram Selective coronary angiogram Left internal mammary angiography Selective engagement of saphenous vein graft to the circumflex artery Selective engagement of saphenous vein graft with a posterior sending artery INDICATION Coronary artery disease, Progressive angina pectoris, History of coronary bypass surgery Informed consent was obtained prior to the procedure. COMPLICATIONS NONE Estimated Blood Loss: LESS THAN 10 ML TECHNIQUE One percent lidocaine used to anesthetize the right groin. The right femoral artery was accessed via the Seldinger technique and a 5 Swedish sheath was placed in the right femoral artery. A JL 4, JR4 catheter were used to perform left heart catheterization, left ventriculogram selective coronary angiography as well as selective engagement of the 2 vein grafts and the left internal mammary artery. At the end of the procedure the patient was transferred to the postop holding area in stable condition for sheath removal. ANGIOGRAPHIC RESULTS The left main artery Patent The left anterior descending artery Proximally occluded The circumflex artery Proximally occluded The right coronary artery Patent with ostial proximal high-grade 70% stenoses The AMANDA ventriculogram reveals Normal 60% The left ventricular end-diastolic pressure 10 mmHg OCONNOR to LAD widely patent Saphenous to large first obtuse marginal artery is widely patent. The first obtuse marginal artery has a proximal 90% stenosis which then backfills a medium sized second obtuse marginal artery. This is a long and 150 degree bend Saphenous to posterior descending artery widely patent IMPRESSION Patent three-vessel bypass grafts as described above Severe stenosis in the [place] first obtuse marginal artery which is bypassed however the backfilling supplies a second obtuse marginal artery. Percutaneous revascularization of this vessel is ill-advised Preserved ejection fraction Normal LVEDP PLAN 1. Medical management for coronary disease 2. I do not recommend revascularizing the circumflex artery extending back into the second obtuse marginal artery. This bend is essentially 150 degrees and would not accommodate a stent and is more likely to actually tear the vessel then provide benefit. Medical management is warranted Electronically signed by : Joon Arenas MD 11/16/2023 14:04:21
[2023-11-16 08:39] LABS: Basophils # 0.1 K/mm3 (0-0.2); Basophils % 0.6 % (0.1-2.0); Eosinophils # 0.4 K/mm3 (0.0-0.4); Eosinophils % 5.7 % (0.1-12.0); Hematocrit 37.7 % (37.0-47.0); Hemoglobin 11.9 g/dL (12.2-16.2); Lymphocytes # 2.3 K/mm3 (0.7-4.5); Lymphocytes % 31.4 % (10-50); Mean Corpuscular HGB Conc 31.5 g/dL (31.8-35.4); Mean Corpuscular Hemoglobin 30.2 pg (27.0-31.2); Mean Corpuscular Volume 96.1 fl (81-99); Mean Platelet Volume 7.5 fl (7.4-10.4); Monocytes # 0.6 K/mm3 (0.1-1.0); Monocytes % 7.9 % (1.7-9.3); Neutrophils % 54.4 % (37.0-80.0); Platelet Count 391 K/mm3 (142-424); Red Blood Count 3.93 M/mm3 (4.20-5.40); Red Cell Distribution Width 14.1 % (11.5-17.5); White Blood Count 7.3 K/mm3 (4.8-10.8)
[2023-11-16 08:53] LABS: Chloride 105 mmol/L (98-107); Sodium 140 mmol/L (136-145)
[2023-11-16 08:56] LABS: Blood Urea Nitrogen 25 mg/dl (7-17); Carbon Dioxide 32 mmol/L (22.0-30.0); Creatinine Clearance Estimated 52 mL/min (50-200); Estimated Glomerular Filt Rate 68 ml/min (>60); GFR (African American) 82 ML/MIN (>60)
[2023-11-16 08:57] LABS: Calcium 10.1 mg/dl (8.4-10.2); Glucose 86 mg/dl (74-100)
[2023-11-16] MEDS: HEPARIN 1,000 UNITS/500ML NS (CATH LAB) 3000 UNIT IV (09:52)
[2023-11-16] MEDS: LIDOCAINE 1% 10ML MDV 20 ML IJ (09:52)
[2023-11-16] MEDS: 0.9 % SODIUM CHLORIDE 500 ML 25 ML IV (09:52)
[2023-11-16] MEDS: diphenhydrAMINE 50MG/ML VIAL 50 MG IV (09:52)
[2023-11-16] MEDS: FENTANYL 100MCG/2ML VIAL 25 MCG IV (10:11)
[2023-11-16] MEDS: MIDAZOLAM HCL 1MG/1ML 5ML VIAL 1 MG IV (10:11)
[2023-11-16] MEDS: IOPAMIDOL-370 (76%);100ML BOTTLE 90 ML IV (14:54)
== END 2023-11-16 13:30 | disposition home or self-care (01) ==
PROVIDERS: PCP Nurse Practitioner; Visit Provider Internal Medicine
DX: I25.118 Atherosclerotic heart disease of native coronary artery with other forms of angina pectoris (principal); Z95.1 Presence of aortocoronary bypass graft; E11.9 Type 2 diabetes mellitus without complications; Z79.84 Long term (current) use of oral hypoglycemic drugs; I10 Essential (primary) hypertension; E78.5 Hyperlipidemia, unspecified
CPT/HCPCS: 80048; 85025; 93459; 99152; 99153; C1725; C1760; C1769; C1894; J1200; J1644; J2250; J3010; Q9967

== ENCOUNTER 2024-03-16 13:59 | Emergency (ER) | payer MEDICARE, MEDICAID, SELFPAY ==
[2024-03-16] VITALS (7 sets, daily range): BP systolic 148–164; BP diastolic 65–93; PULSE 68–85; RESP 11–20; TEMP 36.8; O2SAT 93–95; BMI 35.2
--- NOTE | 2024-03-16 13:56 | ECG_ITS ---
APPROVED REPORT Exam: Resting ECG HR:78 bpm ECG Measurements Heart Rate 78 AXES LA 182 P -61 QRSd 94 QRS -21 QT 385 T 29 QTc 418 Conclusion SINUS RHYTHM BORDERLINE LEFT AXIS DEVIATION [QRS AXIS < -20] VOLTAGE CRITERIA FOR LVH [MEETS CRITERIA IN ONE OF: R(aVL), S(V1), R(V5), R(V5/V6)+S(V1)] ABNORMAL ECG UNCONFIRMED REPORT Electronically signed by : Jerzy Mejia, 03/16/2024 16:09:51
--- NOTE | 2024-03-16 13:58 | ED_ITS ---
<Statement entered by Autumn Osman DO - 03/18/24 07:23> I was consulted by the MEENU, and we discussed the complexity of the problems being addressed. I approved the treatment and management plan for this patient's care in the emergency department, thus performing a substantive portion of the medical decision making. Autumn Osman DO Discharge Plan Disposition Patient Disposition: Home, Self-Care Condition: Good Prescriptions Prescriptions: No Action aspirin [Adult Low Dose Aspirin] 81 mg tablet,delayed release (DR/EC) 81 mg PO QDAY gabapentin 600 mg tablet PO TID celecoxib [Celebrex] 100 mg capsule 100 mg PO DAILY Qty: 90 1RF duloxetine 60 mg capsule,delayed release(DR/EC) 60 mg PO BID Qty: 180 1RF fenofibrate 160 mg tablet 160 mg PO QDAY Qty: 90 1RF hydrochlorothiazide 25 mg tablet 25 mg PO QDAY Qty: 90 1RF isosorbide mononitrate 30 mg tablet extended release 24 hr 30 mg PO QAM Qty: 90 1RF Rx Instructions: swallow whole with glass of water; do not crush/chew /dissolve /cut/break losartan 25 mg tablet 25 mg PO BID Qty: 180 1RF meclizine 12.5 mg tablet 25 mg PO TID PRN (Reason: dizziness) Qty: 60 1RF metformin 500 mg tablet extended release 24 hr 500 mg PO TID Qty: 270 1RF omeprazole 20 mg capsule,delayed release(DR/EC) 20 mg PO DAILY Qty: 90 1RF oxybutynin chloride 10 mg tablet extended release 24hr 10 mg PO DAILY Qty: 90 1RF ranolazine 500 mg tablet extended release 12 hr 500 mg PO BID Qty: 180 1RF rivaroxaban 2.5 mg tablet 2.5 mg PO DAILY Qty: 90 1RF rosuvastatin 10 mg tablet 10 mg PO QDAY Qty: 90 1RF Referrals Follow up/Referrals: Maxine Higginbotham APRN [Primary Care Provider] - See instructions Yusuf Huerta MD [Staff Physician] - See instructions Activity Restrictions/Add. Instructions Additional Instructions/Restrictions: I have referred you to cardiology for evaluation of your lower extremity swelling. Please call tomorrow make an appointment. Follow-up with your PCP on Wednesday for recheck. Your PCP can also refer you for evaluation of sleep apnea as we are unable to do this from the ER unfortunately. If your symptoms change worsen or continue follow-up with your PCP sooner or return to the ER as needed. Clinical Impressions Clinical Impression: Peripheral edema Print Language Print Language: Kyrgyz Discharge ED Provider: Jerzy Mejia General Adult HPI <SPIKE Duarte - Last Filed: 03/16/24 23:34> General Chief complaint: Shortness of Breath/Dyspnea Stated complaint: SOA Time Seen by Provider: 03/16/24 14:29 History of Present Illness HPI narrative: Patient presents for evaluation of a breathing problem and lower extremity swelling. Patient relates that because of the cold temperatures she has been sleeping in her recliner for the last week. She only has heat in 2 rooms in her house and her bedroom is extremely cold. Patient reports that when she is falling asleep she feels like she chokes when she wakes up. She does not have a known history of sleep apnea. She denies chest pain fever chills hemoptysis hematochezia melena nausea vomiting diarrhea. She also notes that over the last week her extremities have seen to be swelling especially in her feet. She does not have a known history of vascular disease but does have a history of coronary artery disease hypertension type 2 diabetes mellitus hyperlipidemia. Related Data Home Medications ?Medication ?Instructions ?Recorded ?Confirmed aspirin 81 mg tablet,delayed 81 mg PO QDAY Heart disease 03/22/17 11/30/23 release (Adult Low Dose Aspirin) gabapentin 600 mg tablet mg PO TID 08/10/23 11/30/23 Previous Rx's ?Medication ?Instructions ?Recorded celecoxib 100 mg capsule (Celebrex) 100 mg PO DAILY Pain #90 caps 08/10/23 duloxetine 60 mg capsule,delayed 60 mg PO BID mood #180 caps 08/10/23 release fenofibrate 160 mg tablet 160 mg PO QDAY Cholesterol #90 tabs 08/10/23 hydrochlorothiazide 25 mg tablet 25 mg PO QDAY Fluid #90 tabs 08/10/23 isosorbide mononitrate 30 mg 30 mg PO QAM Heart disease #90 tabs 08/10/23 tablet,extended release 24 hr losartan 25 mg tablet 25 mg PO BID blood pressure #180 08/10/23 tabs meclizine 12.5 mg tablet 25 mg (2 x 12.5 mg) PO TID PRN 06/11/24 dizziness #60 tabs metformin 500 mg tablet,extended 500 mg PO TID #270 tabs 08/10/23 release 24 hr omeprazole 20 mg capsule,delayed 20 mg PO DAILY acid reflux #90 caps 08/10/23 release oxybutynin chloride 10 mg 10 mg PO DAILY bladder spasms #90 08/10/23 tablet,extended release 24 hr tabs ranolazine 500 mg tablet,extended 500 mg PO BID heart/chest pain 08/10/23 release,12 hr #180 tabs rivaroxaban 2.5 mg tablet 2.5 mg PO DAILY Blood thinner #90 08/10/23 tabs rosuvastatin 10 mg tablet 10 mg PO QDAY Cholesterol #90 tabs 08/10/23 Allergies Allergy/AdvReac Type Severity Reaction Status Date / Time No Known Allergies Allergy Verified 11/30/23 09:57 [facility] <SPIKE Duarte - Last Filed: 03/16/24 23:34> [facility] Disclaimer: The information contained in this section may have been updated after the patient was seen, as this information can be updated by other users. Medical History Myalgia Hypertension Gastroesophageal reflux disease Abnormal EKG Chest pain Hyperlipidemia Diabetes mellitus Coronary arteriosclerosis Hypertensive disorder Surgical History History of coronary artery bypass graft Social History Smoking Status: Never smoker alcohol intake: never counseling provided: none substance use type: denies use current occupational status: unemployed Travel in the last 8 weeks: None housing: house current occupational exposures/hazards: No caffeine: Yes Have you lived/traveled outside [place] in past 30 days?: No Contact w/someone who lives/traveled outside [place] past 30 days?: No Exposure to someone with infectious disease in past 14 days?: No Do you have a fever (greater than 100.4 F or 38 C)?: No Have you tested positive for COVID-19: No Exposed to someone with COVID-19 in past 14 days?: No Do you have a sore throat?: No Do you have a cough?: No Do you have any weakness?: No Do you have any diarrhea?: No Are you experiencing any unusual bleeding?: No Do you have any muscle aches/pain?: No Do you have any abdominal pain?: No Are you experiencing loss of taste or smell?: No Other Medical History Have you received the Flu Vaccine for this season: No Have you received the Pneumonia Vaccine: Yes <SPIKE Duarte - Last Filed: 03/16/24 23:34> ROS Obtained: Yes Systems reviewed as appropriate & no additional complaints except as documented Physical Exam <SPIKE Duarte - Last Filed: 03/16/24 23:34> General General appearance: alert and in no apparent distress Respiratory Respiratory exam: Present normal lung sounds bilaterally Cardiovascular Cardiovascular exam: Present regular rate Neurological Exam Neurological exam: Present alert and oriented X3 Medical Decision Making <SPIKE Duarte - Last Filed: 03/16/24 23:34> Medical Records Medical records reviewed: Yes I reviewed the patient's medical records. Screening: Per USPSTF and CDC recommendations, given the prevalence of disease in our region, it is our hospital?s policy to screen for HIV and viral Hepatitis for all patients aged 18 and over and those with ongoing risk factors. Yahir Inquiry Pt receiving controlled substance: No Vital Signs: 03/16/24 13:59 03/16/24 15:00 03/16/24 15:30 Temperature 98.2 F Temperature Source Oral Pulse Rate 85 77 Pulse Rate [Right] 76 Respiratory Rate 20 16 19 Blood Pressure 148/93 H 150/65 H Blood Pressure [Right Arm] 150/69 H Blood Pressure Mean [Right Arm] 96 02 Sat by Pulse Oximetry 95 95 93 L Oxygen Delivery Method Room Air Room Air Room Air 03/16/24 16:00 03/16/24 16:30 03/16/24 17:00 Temperature Temperature Source Pulse Rate 82 78 80 Pulse Rate [Right] Respiratory Rate 14 11 L 14 Blood Pressure 154/89 H 154/89 H 164/90 H Blood Pressure [Right Arm] Blood Pressure Mean [Right Arm] 02 Sat by Pulse Oximetry 94 L 95 94 L Oxygen Delivery Method Room Air Room Air Room Air 03/16/24 17:23 Temperature 98.2 F Temperature Source Pulse Rate 68 Pulse Rate [Right] Respiratory Rate 20 Blood Pressure 164/90 H Blood Pressure [Right Arm] Blood Pressure Mean [Right Arm] 02 Sat by Pulse Oximetry Oxygen Delivery Method Lab Data Lab results reviewed: Yes I reviewed the patient's lab results. Lab Results 03/16/24 14:22: WBC 9.4, RBC 4.00 L, Hgb 11.6 L, Hct 35.4 L, MCV 88.5, MCH 29.0, MCHC 32.8, RDW 13.4, Plt Count 324, MPV 9.6, Neut % (Auto) 64.6, Lymph % (Auto) 20.9, Dent % (Auto) 10.1 H, Eos % (Auto) 3.6, Baso % (Auto) 0.4, Neut # (Auto) 6.1, Lymph # (Auto) 2.0, Dent # (Auto) 1.0, Eos # (Auto) 0.3, Baso # (Auto) 0.0, D-Dimer 0.64 H, Sodium 139, Potassium 4.1, Chloride 103, Carbon Dioxide 30, Anion Gap 10.1, BUN 23 H, Creatinine 0.60, Estimated Creat Clear 53, Estimated GFR 95, Est GFR ( Amer) 115, Glucose 93, Calcium 10.8 H, Magnesium 1.6, Total Bilirubin 0.4, AST 31, ALT 21, Alkaline Phosphatase 73, Troponin I < 0.01, NT-Pro-B Natriuret Pep 259, Total Protein 7.6, Albumin 4.2, Globulin 3.4 H, Albumin/Globulin Ratio 1.2, TSH 2.23, Free T4 Index 3.4 L, Thyroxine (T4) 11.0, T3 Uptake 31, HCV Ab KALPANA w/Rflx PCR Qn Negative, HIV Ag/Ab Combo Qual Negative 03/16/24 14:30: Urine Color Yellow, Urine Appearance Clear, Urine pH 8.0, Ur Specific [place] 1.015, Urine Protein Negative, Urine Glucose (UA) Negative, Urine Ketones Negative, Urine Blood Negative, Urine Nitrate Negative, Urine Bilirubin Negative, Urine Urobilinogen 0.2, Ur Leukocyte Esterase Negative, Urine RBC None, Urine WBC None, Ur Squamous Epith Cells None, Urine Bacteria Trace 03/16/24 14:22 03/16/24 14:22 Orders (Tests/Meds): ED MEDICATIONS Discontinued Medications Generic Name Dose Route Start Last Admin Trade Name Freq PRN Reason Stop Dose Admin Acetaminophen 1,000 mg 03/16/24 14:17 03/16/24 14:35 Acetaminophen 500mg Tab PO 03/16/24 14:18 1,000 mg ONCE ONE Administration ORDERS Category Date Time Status BNP [NT Pro Brain Natriuretic Pep.] Stat Lab 03/16/24 14:22 Completed CBC w/Auto Diff [Complete Blood Count Auto Diff] Stat Lab 03/16/24 14:22 Completed CMP [Comprehensive Metabolic Panel] Stat Lab 03/16/24 14:22 Completed D-Dimer Stat Lab 03/16/24 14:22 Completed HIV Combo Routine Lab 03/16/24 14:22 Completed Hepatitis C Ab Qual. W/ RFX Routine Lab 03/16/24 14:22 Completed Magnesium Stat Lab 03/16/24 14:22 Completed Thyroid Panel Stat Lab 03/16/24 14:22 Completed Trop I [Troponin I] Stat Lab 03/16/24 14:22 Completed UA [Urinalysis and Microscopic] Stat Lab 03/16/24 14:30 Completed HEART Score History (anamnesis): Slightly suspicious ECG: Non-specific disturbance Age: >65 years Risk factors: Atherosclerosis history Troponin: </= normal limit HEART Score: 5 Medical Decision Narrative: In summary patient is a 83-year-old female who presents to the emergency department for evaluation of a sleep problem and peripheral edema. Patient is patient is initially slightly hypertensive with a blood pressure 150/69 pulse 76 with normal sinus rhythm on the bedside monitor breathing 20 times a minute satting at 95% on room air upon arrival, with a temperature of 98.2. Physical exam is remarkable for a well-nourished well-developed centrally obese 83-year-old female who is in no acute distress. Breath sounds are clear and equal bilaterally to the bases without adventitious sounds. Heart sounds are normal abdominal exam is soft with no rebound or guarding or rigidity. Patient has 2+ pitting edema in the bilateral lower extremities however there is no palpable cords no cellulitis no induration no erythema. DP and PT are intact bilaterally. Patient is neurovascular intact in all 4 extremities. Michel Coma Score is 15. Patient is awake alert and oriented person place and circumstance cranial nerves II through XII are intact grossly to exam. Differential diagnosis includes dependent edema versus heart failure versus ACS versus sleep apnea etc. Initial workup will be conducted with hematologic labs urinalysis plain film chest x-ray. Initial interventions were considered however patient is hemodynamic stable and has no oxygen requirement and no specific complaints currently thus deferred for now. Initial workup reviewed by me shows a normal white count with a stable H&H no left shift, my informed interpretation of the plain film chest x-ray shows no acute processes, D-dimer is 0.64 and via years criteria PE is excluded, initial troponin is undetectable at 0.01 given that the patient has no chest pain and no cardiac symptoms only single troponin was ordered, urinalysis is bland. Upon repeat evaluation I had interactive discussion with the patient and her family at her bedside regarding her MORRISON her findings. I believe the patient has having dependent edema due to her sleeping physician. Also things affecting her ability to sleep although it may have been mass potential sleep abnormality. Patient is appropriate for discharge with close follow-up with her PCP for referral for sleep apnea testing, follow-up with cardiology for reevaluation of her cardiac status and recommendations that she not sleep sitting up in her recliner if at all possible. Patient verbalized understanding and agreement.. Given this patient is appropriate for discharge with close follow-up with cardiology and her PCP. <Jerzy Mejia MD - Last Filed: 03/17/24 07:04> Vital Signs: 03/16/24 13:59 03/16/24 15:00 03/16/24 15:30 Temperature 98.2 F Temperature Source Oral Pulse Rate 85 77 Pulse Rate [Right] 76 Respiratory Rate 20 16 19 Blood Pressure 148/93 H 150/65 H Blood Pressure [Right Arm] 150/69 H Blood Pressure Mean [Right Arm] 96 02 Sat by Pulse Oximetry 95 95 93 L Oxygen Delivery Method Room Air Room Air Room Air 03/16/24 16:00 03/16/24 16:30 03/16/24 17:00 Temperature Temperature Source Pulse Rate 82 78 80 Pulse Rate [Right] Respiratory Rate 14 11 L 14 Blood Pressure 154/89 H 154/89 H 164/90 H Blood Pressure [Right Arm] Blood Pressure Mean [Right Arm] 02 Sat by Pulse Oximetry 94 L 95 94 L Oxygen Delivery Method Room Air Room Air Room Air 03/16/24 17:23 Temperature 98.2 F Temperature Source Pulse Rate 68 Pulse Rate [Right] Respiratory Rate 20 Blood Pressure 164/90 H Blood Pressure [Right Arm] Blood Pressure Mean [Right Arm] 02 Sat by Pulse Oximetry Oxygen Delivery Method Lab Data Lab Results 03/16/24 14:22: WBC 9.4, RBC 4.00 L, Hgb 11.6 L, Hct 35.4 L, MCV 88.5, MCH 29.0, MCHC 32.8, RDW 13.4, Plt Count 324, MPV 9.6, Neut % (Auto) 64.6, Lymph % (Auto) 20.9, Dent % (Auto) 10.1 H, Eos % (Auto) 3.6, Baso % (Auto) 0.4, Neut # (Auto) 6.1, Lymph # (Auto) 2.0, Dent # (Auto) 1.0, Eos # (Auto) 0.3, Baso # (Auto) 0.0, D-Dimer 0.64 H, Sodium 139, Potassium 4.1, Chloride 103, Carbon Dioxide 30, Anion Gap 10.1, BUN 23 H, Creatinine 0.60, Estimated Creat Clear 53, Estimated GFR 95, Est GFR ( Amer) 115, Glucose 93, Calcium 10.8 H, Magnesium 1.6, Total Bilirubin 0.4, AST 31, ALT 21, Alkaline Phosphatase 73, Troponin I < 0.01, NT-Pro-B Natriuret Pep 259, Total Protein 7.6, Albumin 4.2, Globulin 3.4 H, Albumin/Globulin Ratio 1.2, TSH 2.23, Free T4 Index 3.4 L, Thyroxine (T4) 11.0, T3 Uptake 31, HCV Ab KALPANA w/Rflx PCR Qn Negative, HIV Ag/Ab Combo Qual Negative 03/16/24 14:30: Urine Color Yellow, Urine Appearance Clear, Urine pH 8.0, Ur Specific [place] 1.015, Urine Protein Negative, Urine Glucose (UA) Negative, Urine Ketones Negative, Urine Blood Negative, Urine Nitrate Negative, Urine Bilirubin Negative, Urine Urobilinogen 0.2, Ur Leukocyte Esterase Negative, Urine RBC None, Urine WBC None, Ur Squamous Epith Cells None, Urine Bacteria Trace Orders (Tests/Meds): ED MEDICATIONS Discontinued Medications Generic Name Dose Route Start Last Admin Trade Name Freq PRN Reason Stop Dose Admin Acetaminophen 1,000 mg 03/16/24 14:17 03/16/24 14:35 Acetaminophen 500mg Tab PO 03/16/24 14:18 1,000 mg ONCE ONE Administration ORDERS Category Date Time Status BNP [NT Pro Brain Natriuretic Pep.] Stat Lab 03/16/24 14:22 Completed CBC w/Auto Diff [Complete Blood Count Auto Diff] Stat Lab 03/16/24 14:22 Completed CMP [Comprehensive Metabolic Panel] Stat Lab 03/16/24 14:22 Completed D-Dimer Stat Lab 03/16/24 14:22 Completed HIV Combo Routine Lab 03/16/24 14:22 Completed Hepatitis C Ab Qual. W/ RFX Routine Lab 03/16/24 14:22 Completed Magnesium Stat Lab 03/16/24 14:22 Completed Thyroid Panel Stat Lab 03/16/24 14:22 Completed Trop I [Troponin I] Stat Lab 03/16/24 14:22 Completed UA [Urinalysis and Microscopic] Stat Lab 03/16/24 14:30 Completed HEART Score HEART Score: 5 Critical Care <SPIKE Duarte - Last Filed: 03/16/24 23:34> Critical Care Time Critical Care Time: No
[2024-03-16] MEDS: ACETAMINOPHEN 500MG TAB 1000 MG PO (14:35)
[2024-03-16 14:38] LABS: Basophils % 0.4 % (0.1-2.0); Eosinophils # 0.3 K/mm3 (0.0-0.4); Eosinophils % 3.6 % (0.1-12.0); Hematocrit 35.4 % (37.0-47.0); Hemoglobin 11.6 g/dL (12.2-16.2); Lymphocytes % 20.9 % (10-50); Mean Corpuscular HGB Conc 32.8 g/dL (31.8-35.4); Mean Corpuscular Volume 88.5 fl (81-99); Mean Platelet Volume 9.6 fl (7.4-10.4); Monocytes % 10.1 % (1.7-9.3); Neutrophils # 6.1 K/mm3 (1.8-7.8); Neutrophils % 64.6 % (37.0-80.0); Platelet Count 324 K/mm3 (142-424); Red Cell Distribution Width 13.4 % (11.5-17.5); White Blood Count 9.4 K/mm3 (4.8-10.8)
[2024-03-16 14:49] LABS: Alanine Aminotransferase 21 U/L (12-78); Albumin Level 4.2 g/dl (3.5-5.0); Albumin/Globulin Ratio 1.2 (1.1-1.8); Alkaline Phosphatase 73 U/L (38-126); Aspartate Amino Transferase 31 U/L (14-36); Bilirubin,Total 0.4 mg/dl (0.2-1.3); Blood Urea Nitrogen 23 mg/dl (7-17); Calcium 10.8 mg/dl (8.4-10.2); Carbon Dioxide 30 mmol/L (22.0-30.0); Chloride 103 mmol/L (98-107); Creatinine Clearance Estimated 53 mL/min (50-200); Estimated Glomerular Filt Rate 95 ml/min (>60); GFR (African American) 115 ML/MIN (>60); Globulin 3.4 g/dL (1.3-3.2); Glucose 93 mg/dl (74-100); Magnesium 1.6 mg/dl (1.6-2.3); Sodium 139 mmol/L (136-145); Total Protein,Serum 7.6 g/dl (6.3-8.2)
[2024-03-16 14:53] LABS: D-Dimer 0.64 ug/mL (0.0-0.5)
[2024-03-16 15:02] LABS: NT Pro Brain Natriuretic Pep. 259 pg/mL (0-450)
[2024-03-16 15:15] LABS: Anion Gap 10.1 mEq/L (5-15); Potassium 4.1 mmoL/L (3.5-5.1); Troponin I < 0.01 ng/ml (0.00-0.034)
[2024-03-16 15:32] LABS: Free Thyroxine Index 3.4 ug/dL (5.93-13.13); Triiodothryronine (T3) Uptake 31 % (23.5-40.5)
[2024-03-16 15:45] LABS: Thyroid Stimulating Hormone 2.23 uIU/mL (0.465-4.68)
[2024-03-16 15:56] LABS: HIV Combo NEGATIVE (Negative)
[2024-03-16 16:03] LABS: Hepatitis C Ab Qual. W/ RFX NEGATIVE (Negative)
[2024-03-16 16:13] LABS: Microscopic, Urine URINE MICROSCOPIC (MICROSCOPIC)
[2024-03-16 16:19] LABS: Appearance,Urine CLEAR (Clear); Bilirubin,Urine Negative (Negative); Blood, Urine Negative (Negative); Color,Urine YELLOW (Yellow); Glucose,Urine (UA) Negative (Negative); Ketones,Urine Negative (Negative); Leukocyte Esterase,Urine Negative (Negative); Nitrate,Urine Negative (Negative); Protein,Urine Negative (Negative); Specific Gravity, Urine 1.015 (1.005-1.030); Urobilinogen,Urine 0.2 EU/dl (0.2)
[2024-03-16 16:43] LABS: Bacteria,Urine Trace /lpf
== END 2024-03-16 17:38 | disposition home or self-care (01) ==
PROVIDERS: Physician Assistant; Emergency Provider Student in an Organized Health Care Education/Training Program; PCP Nurse Practitioner
DX: R60.0 Localized edema (principal); R06.02 Shortness of breath
CPT/HCPCS: 80053; 81001; 83735; 83880; 84436; 84443; 84479; 84484; 85025; 85378; 86803; 87389; 93005; 99283

== ENCOUNTER 2024-07-12 10:02 | Emergency (ER) | payer MEDICARE, MEDICAID, SELFPAY ==
[2024-07-12] VITALS (16 sets, daily range): BP systolic 70–132; BP diastolic 45–62; PULSE 79–95; RESP 14–23; TEMP 36.6–36.7; O2SAT 94–99; BMI 35.2; BMI 35.3
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
--- NOTE | 2024-07-12 10:19 | PC.NURSE ---
0957 FS 90 BP 132/62 P 95 RR 18 O2 97 Patient is alert and oriented, lung sounds clear bilaterally, + radial pulses, + pedal pulses, Pupils 2 and symmetrical, + thinners, abrasion noted to left scalp and left eye, trachea midline, periorbital ecchymosis noted, right shoulder pain, midline abdomen pain, left knee abrasion and pain, right knee pain, no active bleeding, pelvis intact, All per Dr. Springer.
--- NOTE | 2024-07-12 10:21 | XR_ITS ---
FINAL REPORT CLINICAL HISTORY: Deformity to right pressley COMPARISON: None FINDINGS: RIGHT ANKLE: 3 views of the right ankle were obtained. There is a sideplate and screws securing the distal fibula. A single screw is present in the medial malleolus. There is a comminuted angulated fracture of the distal tibial metadiaphysis. There is a probable fracture of the distal fibula. The joint spaces are intact. There is no soft tissue abnormality. IMPRESSION: Angulated comminuted fracture distal tibial metadiaphysis. Reviewed, Interpreted and Dictated by Albert Gonzalez MD Transcribed by Cielo Pan Authenticated and [facility]
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
--- NOTE | 2024-07-12 10:21 | ECG_ITS ---
APPROVED REPORT Exam: Resting ECG HR:92 bpm ECG Measurements Heart Rate 92 AXES [place] 156 P 3 QRSd 89 QRS -6 QT 355 T 15 QTc 405 Conclusion SINUS RHYTHM MODERATE VOLTAGE CRITERIA FOR LVH, CONSIDER NORMAL VARIANT [MEETS CRITERIA IN ONE OF: R(aVL), S(V1), R(V5), R(V5/V6)+S(V1)] INFERIOR MYOCARDIAL INFARCTION , PROBABLY OLD [40+ ms Q WAVE AND/OR ST/T ABNORMALITY IN II/aVF] ABNORMAL ECG UNCONFIRMED REPORT Electronically signed by : Mitchell Springer, 07/12/2024 16:23:48
--- NOTE | 2024-07-12 10:21 | XR_ITS ---
FINAL REPORT CLINICAL HISTORY: Left knee pain, fall COMPARISON: None FINDINGS: LEFT KNEE 3 views of the left knee were obtained. There is no definite acute fracture or dislocation. Visualized joint spaces are normally aligned. Prominent soft tissue edema and density in the medial thigh and along the lateral aspect of the knee, probably due to soft tissue hematoma. There is a small joint effusion. IMPRESSION: Soft tissue edema and small joint effusion without definite acute fracture. Reviewed, Interpreted and Dictated by Albert Gonzalez MD Transcribed by Cielo Pan Authenticated and [facility]
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
--- NOTE | 2024-07-12 10:21 | XR_ITS ---
FINAL REPORT CLINICAL HISTORY: Deformity to right pressley COMPARISON: None FINDINGS: Three views of the right knee were obtained. There is no acute fracture or dislocation. The joint spaces are well preserved. There is no acute soft tissue abnormality. IMPRESSION: No acute abnormality identified. Reviewed, Interpreted and Dictated by Albert Gonzalez MD Transcribed by Cielo Pan Authenticated and [facility]
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
--- NOTE | 2024-07-12 10:21 | XR_ITS ---
FINAL REPORT CLINICAL HISTORY: Deformity to right pressley, pain in right hip COMPARISON: None FINDINGS: RIGHT HIP Two views of the right hip demonstrate no acute fracture or dislocation. Moderately advanced hypertrophic changes of osteoarthritis of the right hip. No soft tissue abnormality is seen. IMPRESSION: No acute bony abnormality. Reviewed, Interpreted and Dictated by Albert Gonzalez MD Transcribed by Cielo Pan Authenticated and [facility]
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
--- NOTE | 2024-07-12 10:25 | XR_ITS ---
FINAL REPORT CLINICAL HISTORY: Right shoulder pain, fall COMPARISON: None FINDINGS: RIGHT SHOULDER Three views demonstrate no definite acute fracture or dislocation. There are moderate hypertrophic changes of the glenohumeral joint. The soft tissues are unremarkable. IMPRESSION: No definite acute fracture. Reviewed, Interpreted and Dictated by Albert Gonzalez MD Transcribed by Cielo Pan Authenticated and [facility]
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
--- NOTE | 2024-07-12 10:31 | PC.NURSE ---
pt to CT scan via stretcher
--- NOTE | 2024-07-12 10:31 | PC.NURSE ---
patient gone to CT at this time.
[2024-07-12] MEDS: SODIUM CHLORIDE 0.9% 10ML SYR (RAD ONLY) 10 ML IV (10:51)
[2024-07-12] MEDS: IOPAMIDOL-370 (76%);100ML BOTTLE 160 ML IV (10:51)
[2024-07-12] MEDS: 0.9 % SODIUM CHLORIDE 50 ML VIAL 80 ML IV (10:51)
[2024-07-12] MEDS: TET/DIPHTH/PERT-ADULT 0.5ML SYRINGE 0.5 ML IM (10:58)
[2024-07-12] MEDS: MORPHINE 4MG/ML SYRINGE 4 MG IV (10:58)
[2024-07-12 11:30] LABS: Basophils % 0.3 % (0.1-2.0); Eosinophils # 0.2 Kmm3 (0.0-0.4); Eosinophils % 1.3 % (0.1-12.0); Hematocrit 28.3 % (37.0-47.0); Hemoglobin 9.2 g/dL (12.2-16.2); Immature Granulocytes # 0.07 10^3uL; Immature Granulocytes % 0.5 %; Lymphocytes # 1.5 K/mm3 (0.7-4.5); Mean Corpuscular HGB Conc 32.5 g/dL (31.8-35.4); Mean Corpuscular Hemoglobin 28.8 pg (27.0-31.2); Mean Corpuscular Volume 88.7 fl (81-99); Monocytes # 1.2 K/mm3 (0.1-1.0); Monocytes % 8.7 % (1.7-9.3); Neutrophils # 10.6 K/mm3 (1.8-7.8); Neutrophils % 78.2 % (37.0-80.0); Nucleated Red Blood Cells # 0 10^3/uL; Nucleated Red Blood Cells % 0 %; Platelet Count 325 K/mm3 (142-424); Red Blood Count 3.19 M/mm3 (4.20-5.40); Red Cell Distribution Width 15.2 % (11.5-17.5); Red Cell Distribution Width-SD 49.6 fL; White Blood Count 13.5 K/mm3 (4.8-10.8)
[2024-07-12 11:41] LABS: Activated Partial Thrombo Time 30.9 seconds (22.8-30.6); Chloride 102 mmol/L (98-107); INR 1.11 (0.9-1.1); Potassium 4.6 mmoL/L (3.5-5.1); Prothrombin Time 12.3 seconds (10.1-12.5); Sodium 133 mmol/L (136-145)
[2024-07-12 11:43] LABS: Blood Urea Nitrogen 32 mg/dl (7-17); Creatinine Clearance Estimated 52 mL/min (50-200); Estimated Glomerular Filt Rate 68 ml/min (>60); GFR (African American) 82 ML/MIN (>60)
[2024-07-12 11:44] LABS: Alanine Aminotransferase 12 U/L (12-78); Alkaline Phosphatase 35 U/L (38-126); Anion Gap 5.6 mEq/L (5-15); Aspartate Amino Transferase 26 U/L (14-36); Bilirubin,Total 0.3 mg/dl (0.2-1.3); Calcium 9.5 mg/dl (8.4-10.2); Carbon Dioxide 30 mmol/L (22.0-30.0); Globulin 2.9 g/dL (1.3-3.2); Glucose 117 mg/dl (74-100); Total Protein,Serum 5.9 g/dl (6.3-8.2)
[2024-07-12 11:56] LABS: Troponin I < 0.01 ng/ml (0.00-0.034)
[2024-07-12] MEDS: SODIUM CHLORIDE 0.9% 500ML BAG 500 ML IV (12:00)
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
[2024-07-12] MEDS: 0.9 % SODIUM CHLORIDE 1000ML 1,000 ML 999 ML IV (12:30)
--- NOTE | 2024-07-12 12:59 | PC.NURSE ---
calling [facility] at this time.
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
[2024-07-12 13:20] LABS: Microscopic, Urine URINE MICROSCOPIC (MICROSCOPIC)
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
--- NOTE | 2024-07-12 13:40 | PC.NURSE ---
18fr hansen cath inserted sterile technique.
--- NOTE | 2024-07-12 13:46 | PC.NURSE ---
Notified warehouse representative for admission. ICU level.
[2024-07-12 13:51] LABS: Troponin I < 0.01 ng/ml (0.00-0.034)
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
[2024-07-12 13:55] LABS: Appearance,Urine CLEAR (Clear); Bilirubin,Urine Negative (Negative); Blood, Urine 3+ (Negative); Color,Urine YELLOW (Yellow); Glucose,Urine (UA) Negative (Negative); Ketones,Urine Negative (Negative); Leukocyte Esterase,Urine Negative (Negative); Nitrate,Urine Negative (Negative); PH,Urine 7.5 (5.0-8.5); Protein,Urine 1+ (Negative)
[2024-07-12 14:03] LABS: Bacteria,Urine Trace /lpf; RBC,Urine 50-100 #/hpf (0-3)
--- NOTE | 2024-07-12 14:32 | PC.NURSE ---
[facility] here. Giving bedside report.
[2024-07-12 14:44] LABS: Hematocrit 29.7 % (37.0-47.0); Hemoglobin 9.6 g/dL (12.2-16.2)
== END 2024-07-12 14:46 | disposition short-term general hospital (02) ==
PROVIDERS: Emergency Provider Student in an Organized Health Care Education/Training Program; PCP Nurse Practitioner
DX: S06.360A Traumatic hemorrhage of cerebrum, unspecified, without loss of consciousness, initial encounter (principal); S82.391A Other fracture of lower end of right tibia, initial encounter for closed fracture; S82.831A Other fracture of upper and lower end of right fibula, initial encounter for closed fracture; S02.842A Fracture of lateral orbital wall, left side, initial encounter for closed fracture; S02.40DA Maxillary fracture, left side, initial encounter for closed fracture; S01.01XA Laceration without foreign body of scalp, initial encounter; M54.2 Cervicalgia; M54.6 Pain in thoracic spine; M54.50 Low back pain, unspecified; M25.562 Pain in left knee; M25.511 Pain in right shoulder; R10.817 Generalized abdominal tenderness; I95.9 Hypotension, unspecified; E87.1 Hypo-osmolality and hyponatremia; D64.9 Anemia, unspecified; Z79.01 Long term (current) use of anticoagulants; V03.00XA Pedestrian on foot injured in collision with car, pick-up truck or van in nontraffic accident, initial encounter; Z23 Encounter for immunization
CPT/HCPCS: 51702; 70450; 70486; 70496; 70498; 71045; 71275; 72125; 72128; 72131; 72170; 72192; 73030; 73502; 73562; 73590; 73600; 73620; 74174; 80053; 81001; 84484; 85014; 85018; 85025; 85610; 85730; 86850; 90471; 90715; 93005; 96360; 96361; 96374; 99291; J2270; J7030; J7040; P9016; Q9967